=== PATIENT | male | born 1975 | race African-American/Black ===

== ENCOUNTER 2021-08-11 21:28 | Emergency (ER) | payer MEDICAID, SELFPAY ==
[2021-08-11 21:32] VITALS: BP 193/128; PULSE 101; RESP 16; TEMP 36.9; BMI 31.8
--- NOTE | 2021-08-11 21:38 | ECG_ITS ---
Test Reason : dizziness Blood Pressure : / mmHG Vent. Rate : 098 BPM Atrial Rate : 098 BPM P-R Int : 158 ms QRS Dur : 094 ms QT Int : 368 ms P-R-T Axes : 059 009 057 degrees QTc Int : 469 ms Normal sinus rhythm Possible Left atrial enlargement Left ventricular hypertrophy ( R in aVL , Sokolow-Yoon , Rudy product ) Cannot rule out Septal infarct , age undetermined Abnormal ECG When compared with ECG of 07-FEB-2017 14:33, No significant change was found Referred By: Generic ED Physician Electronically Signed By:KAYLYN WALKER MD
[2021-08-11 21:50] LABS: MANUAL DIFF FLAG NO
[2021-08-11 21:51] LABS: Basophils Percent Auto 0.3 % (0-2); Eosinophils Absolute Auto 0.1 X10*3/uL (0.0-0.4); Eosinophils Percent Auto 0.8 % (0-4); Hematocrit 39.5 % (42.0-52.0); Hemoglobin 12.6 g/dl (14.0-18.0); Imm Gran Abs Auto 0.02 X10*3/uL (0.00-0.03); Imm Gran Pct Auto 0.3 % (0.0-0.4); Lymphocytes Absolute Auto 1.9 X10*3/uL (1.2-4.9); Lymphocytes Percent Auto 30.3 % (20-40); Mean Corpuscular HGB Conc 31.9 g/dl (31.0-36.0); Mean Corpuscular Hemoglobin 27.3 pg (27.0-33.0); Mean Corpuscular Volume 85.5 fL (80.0-98.0); Monocytes Absolute Auto 0.5 X10*3/uL (0.1-1.2); Monocytes Percent Auto 7.5 % (2-11); Neutrophils Absolute Auto 3.9 x10*3/uL (2.0-8.3); Neutrophils Percent Auto 60.8 % (45-73); Platelet Count 317 X10*3/uL (160-400); Red Blood Count 4.62 X10*6/uL (4.60-5.80); Red Cell Distribution Width 14.1 % (11.0-16.0); White Blood Count 6.4 X10*3/uL (4.8-10.8)
--- NOTE | 2021-08-11 22:22 | ED_ITS ---
HPI - General Adult General Chief complaint: General Medical Stated complaint: Dizzy, fatigue, cant sleep Time Seen by Provider: 08/11/21 22:13 Source: patient Mode of arrival: ambulatory Limitations: no limitations History of Present Illness HPI narrative: 46-year-old male who presents emergency department for evaluation possible viral illness. The patient states he has been sick for approximately 3 days. He s tates he is feeling weak. He states that he has dizziness which she describes as a room spinning sensation that occurs when he moves his head. He complains muscle and joint pain. He states he has had subjective fevers with chills. States he has had difficulty sleeping at night. The patient is concerned that he may have COVID. The patient has not been vaccinated against COVID-19. The patient was noted to be hypertensive. He states that he does not have a history of hypertension a does not think that he has had his blood pressure checked in a very long time. He states he does have a PCP. Related Data Previous Rx's Medication Instructions Recorded lisinopril 10 mg tablet 10 mg PO DAILY #30 tab 08/11/21 Allergies Allergy/AdvReac Type Severity Reaction Status Date / Time No Known Allergies Allergy Unverified 02/24/20 15:43 Review of Systems Review of Systems: Yes all other systems are reviewed and are negative [facility] Past Medical History [facility] Narrative: Past medical history: None. Past surgical history: Hernia repair. Social history: The patient smokes 1 pack of cigarettes per day times 30 years. Patient denies alcohol use. He denies drug use. Social History Social History Advance Directives: No Advance Directives Information Provided: No Physical Exam ED Vital Signs: Vital Signs - 24 hr 08/11/21 21:32 Temperature 98.5 F Pulse Rate 101 H Respiratory Rate 16 Blood Pressure 193/128 H BMI result Body Mass Index 31.8 Const General: cooperative and no acute distress Orientation/consciousness: oriented to person and oriented to place Limitations: no limitations HENMT Head: Yes normal to inspection, Yes normocephalic and Yes atraumatic Ears: external ears normal General nose exam: Normal external nose present Face and sinus: Yes normal facial exam Mouth: Normal oral and palatal mucosa present Throat: Yes posterior oropharynx normal Eyes General: appearance normal, both eyes and all related structures Pupils: Equal, round and reactive pupils present Neck Neck: Yes normal visual inspection, Yes no lymphadenopathy, Yes trachea midline and Yes supple Chest Chest palpation & inspection: normal inspection of the chest and normal palpation of entire chest wall Resp Effort & Inspection: normal respiratory effort and able to speak in complete sentences Auscultation: clear to auscultation bilaterally Cardio Rate: regular rate Rhythm: regular rhythm Heart sounds: S1 normal heart sound present, S2 normal heart sound present and no murmurs GI Inspection: Yes normal to inspection Palpation (GI): Soft to palpation, nontender and no guarding Auscultation: normal bowel sounds General: Yes no CVA tenderness Back/Spine/Pelvis Back: no CVA tenderness Skin General skin exam: no rashes or lesions noted Neuro General: oriented to person and oriented to place Cranial nerves: Yes CN's II-XII intact bilaterally and Yes Equal, round and reactive pupils present Cognition (Neuro): normal cognition Motor exam (neuro): 5/5 motor strength present throughout Extrem General: Yes normal to inspection Psych Appearance: grossly normal Speech and movement: Normal speech and movement present Affect: normal affect Attitude: cooperative Thought process: Normal thought process present Thought content: Normal thought content present Course Course Course Narrative: 46-year-old male who presents emergency department for evaluation of viral-like illness x3 days. The patient is not vaccinated for COVID-19. Patient's vital signs reveal that he was hypertensive with a blood pressure 193/128. He does not have a history hypertension and does not take any medications. Patient's pulse was elevated 101. His exam was otherwise unremarkable. Laboratory evaluation revealed a normal CBC, BMP revealed an elevated CO2 of 30 otherwise was unremarkable. COVID-19 test was negative. Patient's presentation is consistent with a viral illness. Patient was advised to take Tylenol for his fever. I did tell him that sometimes a COVID-19 test can be falsely negative any continued symptoms especially symptoms of pneumonia you get a repeat COVID test . The patient is hypertensive. He most likely has essential hypertension. I do think he would benefit from being started on antihypertensive medications. The patient was started on lisinopril 10 mg once a day in use given his 1st do se here in the emergency department. He was given printed and verbal instructions and discharged home Medical Decision Making Lab Data Result diagrams: 08/11/21 21:44 08/11/21 21:44 Labs: Lab Results 08/11/21 08/11/21 08/11/21 Range/Units 21:44 21:44 21:44 WBC 6.4 (4.8-10.8) X10*3/uL RBC 4.62 (4.60-5.80) X10*6/uL Hgb 12.6 L (14.0-18.0) g/dl Hct 39.5 L (42.0-52.0) % MCV 85.5 (80.0-98.0) fL MCH 27.3 (27.0-33.0) pg MCHC 31.9 (31.0-36.0) g/dl RDW 14.1 (11.0-16.0) % Plt Count 317 (160-400) X10*3/uL MPV 10.0 (9.4-12.4) fL Immature Gran % (Auto) 0.3 (0.0-0.4) % Neut % (Auto) 60.8 (45-73) % Lymph % (Auto) 30.3 (20-40) % [place] % (Auto) 7.5 (2-11) % Eos % (Auto) 0.8 (0-4) % Baso % (Auto) 0.3 (0-2) % Lymph # (Auto) 1.9 (1.2-4.9) X10*3/uL [place] # (Auto) 0.5 (0.1-1.2) X10*3/uL Eos # (Auto) 0.1 (0.0-0.4) X10*3/uL Baso # (Auto) 0.0 (0.0-0.2) X10*3/uL Abs Immat Gran (auto) 0.02 (0.00-0.03) X10*3/uL Absolute Neuts (auto) 3.9 (2.0-8.3) x10*3/uL Absolute Nucleated RBC 0.000 (0.0-0.012) X10*3/uL Nucleated RBC % (auto) 0.0 (0.0-0.2) /100WBC Sodium 143 (135-145) mmol/L Potassium 4.1 (3.3-5.1) mmol/L Chloride 108 (96-108) mmol/L Carbon Dioxide 30 H (22-29) mmol/L Anion Gap 9 L (12-20) BUN 15 (9-16) mg/dL Creatinine 1.24 (0.5-1.4) mg/dL Estim Creat Clear Calc 69.5 Estimated GFR > 60 Random Glucose 102 (60-115) mg/dL Calcium 9.3 (8.4-10.2) mg/dL COVID-19 (LUC) Negative (Negative) COVID-19 Clin Com See Note Discharge Plan Discharge Clinical Impression: Viral syndrome Hypertension Qualifiers: Hypertension type: primary hypertension Qualified Code(s): I10 - Essential (sofia simpson) hypertension Patient Disposition: Home, Self-Care Instructions: Viral Syndrome (ED) Additional Instructions: Your blood work was normal. Your COVID-19 test was negative. Sometimes, in the beginning of a COVID infection the test can be negative that you actually have COVID. If you develops symptoms that are consistent with pneumonia such as fever, chills, chest pain, cough, shortness of breath then you should consider getting a repeat COVID test in 3 days. Take Tylenol (acetaminophen) 500 mg pills, 2 pills every 4 to 6 hours as needed for pain or fever Your blood pressure was high at 190 3/128 and 131/96. Normal blood pressure is 120 / 80. I am starting you on a blood pressure medication called lisinopril. Take lisinopril 10 mg once a day. You will need to follow-up with your doctor to get your blood pressure recheck and to get a refill of this medication. Buy a home blood pressure machine. Check your blood pressure on Mondays, Wednesdays and Friday mornings and write these blood pressure reading down over the next 2 weeks. You should follow-up with your doctor to discuss these blood pressure readings in to see if you need an adjustment to medications Follow-up with your doctor in 1-2 weeks. Please return to the emergency department if your symptoms get worse or if you develop any symptoms that are concerning to you. Please see work note Prescriptions: New lisinopril 10 mg tablet 10 mg PO DAILY Qty: 30 0RF Stand Alone Forms: Work/School Release
[2021-08-11 22:23] LABS: Anion Gap 9 (12-20); Blood Urea Nitrogen 15 mg/dL (9-16); Calcium 9.3 mg/dL (8.4-10.2); Carbon Dioxide 30 mmol/L (22-29); Chloride 108 mmol/L (96-108); Creatinine Clr Calc Pharmacy 69.5; Estimated Glomerular Filt Rate > 60; Glucose Random 102 mg/dL (60-115); Potassium 4.1 mmol/L (3.3-5.1); Sodium 143 mmol/L (135-145)
[2021-08-11 22:26] LABS: COVID-19 Test Negative (Negative)
[2021-08-11 22:57] VITALS: BP 144/104; PULSE 75; RESP 16; O2SAT 99
[2021-08-11] MEDS: lisinopriL 10 MG TABLET PO (22:57)
[2021-08-11 23:04] VITALS: BP 131/97; PULSE 80; RESP 14; O2SAT 98
== END 2021-08-11 23:25 | disposition home or self-care (01) ==
PROVIDERS: Emergency Provider Emergency Medicine Emergency Medical Services
DX: B34.9 Viral infection, unspecified (principal); Z20.822 Contact with and (suspected) exposure to COVID-19; I10 Essential (primary) hypertension; R42 Dizziness and giddiness
CPT/HCPCS: 80048; 85025; 87635; 93005; 99283; 99284

== ENCOUNTER 2021-10-10 18:53 | Emergency (ER) | payer MEDICAID, SELFPAY ==
--- NOTE | ~2021-10-10 | XR_ITS ---
EXAMINATION: XR CHEST CLINICAL INFORMATION: Cough. Covid positive. COMPARISON: Chest x-ray 02/07/2017 TECHNIQUE: Frontal portable view of the chest was obtained. 10:31 PM FINDINGS: No significant abnormality is noted involving the heart, lungs, mediastinum, bony thorax or soft tissues. XR/XR chest 1V IMPRESSION: Unremarkable examination.
[2021-10-10 20:22] VITALS: BP 142/88; PULSE 99; RESP 19; TEMP 36.9; O2SAT 98; BMI 38.5
[2021-10-10 20:42] LABS: COVID-19 Test Positive (Negative); IDNOW Serial# 55D5AD1C
[2021-10-10 20:43] LABS: Influenza A Negative (Negative); Influenza B2 Negative (Negative)
--- NOTE | 2021-10-10 22:27 | ED_ITS ---
HPI - General Adult General Chief complaint: General Medical Stated complaint: Covid? dizzy, cant hold anything down Time Seen by Provider: 10/10/21 22:16 Source: patient Mode of arrival: ambulatory Limitations: no limitations History of Present Illness HPI narrative: 46-year-old male healthy here with reports of 2 days of cough, feeling lightheaded and generally weak with poor appetite. No difficulty breathing, chest pain, palpitations, vomiting, diarrhea, abdominal pain. Patient has not received a COVID vaccine. Related Data Previous Rx's Medication Instructions Recorded lisinopril 10 mg tablet 10 mg PO DAILY #30 tab 08/11/21 benzonatate 200 mg capsule 200 mg PO TID PRN #14 cap 10/10/21 prednisone 20 mg tablet 40 mg PO DAILY #8 tab 10/10/21 Allergies Allergy/AdvReac Type Severity Reaction Status Date / Time No Known Allergies Allergy Unverified 02/24/20 15:43 Review of Systems Review of Systems: Yes all other systems are reviewed and are negative Constitutional: Constitutional: Reports no additional constitutional complaints, Denies body ache(s), Denies chills, Denies fever(s), Denies headache(s) and Reports weakness Eyes: Eyes: Reports no additional eye complaints and Denies change in vision ENT: Reports system reviewed and no additional complaints, except as documented, Reports dizziness (lightheaded), Denies headache(s), Denies nasal congestion, Denies nasal discharge and Denies neck pain Cardiovascular: Cardiovascular: Reports no additional cardiovascular complaints, Denies chest pain, Denies leg edema and Denies dyspnea Respiratory: Respiratory: Reports no additional respiratory complaints, Reports cough and Denies dyspnea Gastrointestinal: Gastrointestinal: Reports no additional gastrointestinal complaints, Denies abdominal pain, Denies diarrhea, Denies nausea and Denies vomiting Genitourinary: Genitourinary: Denies urinary incontinence Musculoskeletal: Musculoskeletal: Reports no additional musculoskeletal complaints, Denies back pain, Denies arthralgias, Denies joint swelling, Denies neck pain, Denies numbness and Denies tingling Integumentary/Breasts: Skin/Breast: Reports system reviewed and no additional complaints, except as docu and Denies rash Neurologic: Reports system reviewed and no additional complaints, except as documented, Reports dizziness (lightheaded), Denies headache(s), Denies numbness, Denies tingling and Reports weakness PMFSH Past Medical History Attestation statement: The following information was validated with the patient. Source: old records reviewed and nursing notes reviewed Social History Social History Advance Directives: No Advance Directives Information Provided: No Physical Exam ED Vital Signs: Vital Signs - 24 hr 10/10/21 20:22 Temperature 98.4 F Pulse Rate 99 Respiratory Rate 19 Blood Pressure 142/88 H Pulse Oximetry 98 BMI result Body Mass Index 38.5 Const General: cooperative, healthy appearing, comfortable and no acute distress Orientation/consciousness: patient oriented x3 Limitations: no limitations HENMT Head: Yes normal to inspection Ears: hearing grossly normal bilaterally General nose exam: Normal external nose present Face and sinus: Yes normal facial exam Mouth: Normal oral and palatal mucosa present Teeth and gingiva: dentition normal Throat: Yes posterior oropharynx normal, Yes tonsils normal and Yes uvula midline Eyes General: appearance normal, both eyes and all related structures Pupils: Equal, round and reactive pupils present Neck Neck: Yes normal visual inspection, Yes full ROM and Yes no lymphadenopathy Chest Chest palpation & inspection: normal inspection of the chest Resp Other: Mild expiratory wheezing throughout Effort & Inspection: normal respiratory effort Cardio Rate: regular rate Rhythm: regular rhythm Peripheral pulses: Peripheral pulses 2+ throughout GI Inspection: Yes normal to inspection Palpation (GI): Soft to palpation and nontender General: Yes no CVA tenderness Back/Spine/Pelvis Back: no CVA tenderness Skin General skin exam: no rashes or lesions noted Neuro General: patient oriented x3 and moves all extremities Cranial nerves: Yes Equal, round and reactive pupils present Course Course Course Narrative: 46-year-old here with reports of feeling lightheaded, weak, poor appetite and cough for the last 2 days. On exam patient has mild expiratory wheezing throughout. Vitals are stable. Will check COVID screen, chest x-ray. Will give albuterol 2 puffs and p.o. prednisone Reevaluation(s) Reevaluation #1: X-ray shows no acute finding. COVID screen is positive. The patient has no tachypnea, no hypoxia, no tachycardia. He is speaking full sentences. Plan for discharge home with albuterol MDI as needed and prednisone course. Reviewed worrisome signs and symptoms of when to return to the emergency department. Comfortable discharge home. Time: 23:00 Medical Decision Making Medical Records Medical records reviewed: Yes I reviewed the patient's medical records. Lab Data Lab results reviewed: Yes I reviewed the patient's lab results. Labs: Lab Results 10/10/21 10/10/21 Range/Units 20:20 20:20 COVID-19 (LUC) Positive A (Negative) COVID-19 Clin Com See Note Influenza Type A (ELÍAS) Negative (Negative) Influenza Type B (ELÍAS) Negative (Negative) Influenza A & B Note See Note Imaging Data Chest x-ray: Attestation: I personally reviewed and interpreted this imaging study as follows: Radiologist's impression: [address] [address] XRay Report Signed Patient: Sylvester Brand MR#: [id number] : 1975 Acct:[id number] Age/Sex: 46 / M ADM Date: 10/10/21 Loc: .ED Attending Dr: Ordering Physician: Chloe Avery NP Date of Service: 10/10/21 Procedure(s): XR chest 1V Accession Number(s): [id number] cc: Chloe Avery NP~ EXAMINATION: XR CHEST CLINICAL INFORMATION: Cough. Covid positive. COMPARISON: Chest x-ray 02/07/2017 TECHNIQUE: Frontal portable view of the chest was obtained. 10:31 PM FINDINGS: No significant abnormality is noted involving the heart, lungs, mediastinum, bony thorax or soft tissues. XR/XR chest 1V IMPRESSION: Unremarkable examination. ? Discharge Plan Discharge Clinical Impression: COVID-19 Patient Disposition: Home, Self-Care Instructions: COVID-19 (Coronavirus Disease 2019) (ED) Additional Instructions: Chest x-ray shows no acute finding Use the inhaler 2 puffs every 4 hours as needed Start prednisone tomorrow Return for difficulty breathing, chest pain Prescriptions: New prednisone 20 mg tablet 40 mg PO DAILY Qty: 8 0RF benzonatate 200 mg capsule 200 mg PO TID PRN (Reason: cough) Qty: 14 0RF No Action lisinopril 10 mg tablet 10 mg PO DAILY Qty: 30 0RF Referrals: [facility] [Primary Care Provider] - 5 days (as needed) Stand Alone Forms: Work/School Release
[2021-10-10] MEDS: predniSONE 20 MG TABLET 60 MG PO (22:31)
[2021-10-10] MEDS: Albuterol Sulfate 90 MCG 8 GM INHALER 2 PUFF INHALE (22:50)
== END 2021-10-11 00:10 | disposition home or self-care (01) ==
PROVIDERS: Emergency Provider Internal Medicine
DX: U07.1 COVID-19 (principal)
CPT/HCPCS: 71045; 87502; 87635; 99283; 99284

== ENCOUNTER 2022-08-07 11:54 | Emergency (ER) | payer MEDICAID, SELFPAY ==
--- NOTE | ~2022-08-07 | CT_ITS ---
EXAMINATION: CT ABDOMEN AND PELVIS WITH CONTRAST CLINICAL INFORMATION: Left lower quadrant pain COMPARISON: 02/07/2017 TECHNIQUE: Multidetector volumetric images were obtained from the superior aspect of the liver through the pubic symphysis following administration 85 mL of Omnipaque 350 intravenous contrast. Sagittal and coronal reformatted images were obtained on the technologist's workstation. Oral contrast: No This CT examination was performed using dose optimization techniques as appropriate, variously including the following: *Automated exposure control *Adjustment of mA and/or kV according to patient size (this includes techniques or standardized protocols for targeted exams where dose is matched to indication/reason for exam; i.e. extremities or head) *Use of iterative reconstruction technique DLP: 494 mGy-cm FINDINGS: LUNG BASES: The visualized lung bases are unremarkable. LIVER, GALLBLADDER, AND BILIARY TREE: The liver is normal in size, shape, and attenuation. Tiny right hepatic lobe hypodensity is too small to characterize. No biliary ductal dilatation is present. Gallbladder appears contracted. PANCREAS: Unremarkable. SPLEEN: Unremarkable. ADRENAL GLANDS: Unremarkable. KIDNEYS AND URETERS: No hydronephrosis or obstructing calculus bilaterally. Lobulated contour of the kidneys is noted. Bilateral nephrograms appear symmetric. BLADDER: Mildly distended and grossly unremarkable. GASTROINTESTINAL TRACT: No evidence of bowel obstruction or significant wall thickening. The appendix is unremarkable. No free fluid or free air is seen. ABDOMINAL WALL: No significant hernia is appreciated. LYMPH NODES: Normal. VASCULAR: Unremarkable. PELVIC VISCERA: Unremarkable. OSSEOUS STRUCTURES: Multilevel endplate osteophytes in the spine. CT/CT abdomen pelvis w IV con IMPRESSION: No acute findings identified in the abdomen/pelvis.
[2022-08-07 12:43] VITALS: BP 175/119; PULSE 96; RESP 20; TEMP 36.7; O2SAT 95; BMI 30.9
[2022-08-07 13:14] LABS: MANUAL DIFF FLAG NO
[2022-08-07 13:19] LABS: Basophils Percent Auto 0.5 % (0-2); Eosinophils Percent Auto 0.3 % (0-4); Hematocrit 35.5 % (42.0-52.0); Hemoglobin 11.5 g/dl (14.0-18.0); Imm Gran Abs Auto 0.03 X10*3/uL (0.00-0.03); Imm Gran Pct Auto 0.3 % (0.0-0.4); Lymphocytes Percent Auto 22.9 % (20-40); Mean Corpuscular HGB Conc 32.4 g/dl (31.0-36.0); Mean Corpuscular Volume 83.3 fL (80.0-98.0); Mean Platelet Volume 9.8 fL (9.4-12.4); Monocytes Absolute Auto 0.4 X10*3/uL (0.1-1.2); Monocytes Percent Auto 4.5 % (2-11); Neutrophils Absolute Auto 6.3 x10*3/uL (2.0-8.3); Neutrophils Percent Auto 71.5 % (45-73); Platelet Count 285 X10*3/uL (160-400); Red Blood Count 4.26 X10*6/uL (4.60-5.80); Red Cell Distribution Width 14.7 % (11.0-16.0); White Blood Count 8.8 X10*3/uL (4.8-10.8)
[2022-08-07 13:29] LABS: COVID-19 Test Negative (Negative); IDNOW Serial# 9DB6401D
[2022-08-07 13:30] LABS: Anion Gap 11 (12-20); Blood Urea Nitrogen 25 mg/dL (9-16); Calcium 8.7 mg/dL (8.4-10.2); Carbon Dioxide 25 mmol/L (22-29); Chloride 109 mmol/L (96-108); Creatinine Clr Calc Pharmacy 60.5; Estimated Glomerular Filt Rate 55; Glucose Fasting 121 mg/dL (60-99); Potassium 4.1 mmol/L (3.3-5.1); Sodium 141 mmol/L (135-145)
[2022-08-07 14:49] VITALS: BP 138/95; PULSE 78; RESP 18; TEMP 36.8; O2SAT 99
[2022-08-08 01:43] VITALS: BP 119/81; PULSE 77; RESP 17; TEMP 36.7; O2SAT 96
[2022-08-08 01:51] LABS: Appearance Urine Clear; Color Urine Yellow; Glucose Urine UA Negative (Negative); Leukocyte Esterase Urine Negative (Negative); Nitrite Urine Negative (Negative); PH 5.5 (5.0-9.0); Specific Gravity - Urine >= 1.030 (1.005-1.025); Urine Blood Negative (Negative); Urine Ketones Trace mg/dL (Negative); Urine Protein Trace mg/dL (Neg-Trace)
--- NOTE | 2022-08-08 02:07 | ED_ITS ---
HPI - Abdominal Pain General Chief Complaint: Abdominal Pain Stated Complaint: Abd pain Time Seen by Provider: 08/08/22 02:06 Source: patient Mode of arrival: ambulatory Limitations: no limitations History of Present Illness HPI narrative: Patient with no significant past abdominal complaints comes here for 2 days of left lower abdominal pain with nausea and vomiting started yesterday unable to eat or drink much vomited 3-4 times no diarrhea no fever no chills no blood in the stool last BM was 2 days ago Related Data Previous Rx's Medication Instructions Recorded lisinopril 10 mg tablet 10 mg PO DAILY #30 tabs 08/11/21 benzonatate 200 mg capsule 200 mg PO TID PRN cough #14 caps 10/10/21 prednisone 20 mg tablet 40 mg PO DAILY #8 tabs 10/10/21 dicyclomine 20 mg tablet 20 mg PO QID PRN abdominal pain 08/08/22 #20 tabs Allergies Allergy/AdvReac Type Severity Reaction Status Date / Time No Known Allergies Allergy Unverified 02/24/20 15:43 Review of Systems Review of Systems Yes all other systems are reviewed and are negative [facility] Social History Social History Advance Directives: No Advance Directives Information Provided: Yes Physical Exam ED Vital Signs: Vital Signs - 24 hr 08/07/22 12:43 08/07/22 14:49 08/08/22 01:43 Temperature 98.0 F 98.3 F 98.0 F Pulse Rate 96 78 77 Respiratory Rate 20 18 17 Blood Pressure 175/119 H 138/95 H 119/81 Pulse Oximetry 95 99 96 Oxygen Delivery Method Room Air 08/08/22 04:35 Temperature 98.0 F Pulse Rate 63 Respiratory Rate 18 Blood Pressure 131/70 Pulse Oximetry 96 Oxygen Delivery Method BMI result Body Mass Index 30.9 Appearance: Alert. Oriented X3. No acute distress. Eyes: PERRLA, No Nystagmus ENT: Pharynx normal. Oral Mucosa moist Neck: Normal inspection. Neck supple. CVS: Normal heart rate and rhythm. Pulses normal. Respiratory: No respiratory distress. Equal air entry bilateral, no wheezing/rales/rhonchi Abdomen: Soft tender with slight guarding left lower quadrant no rebound tenderness Bowel sounds are present, no mass palpable, no CVA tenderness Skin: Skin warm and dry. Normal skin color. Normal skin turgor. Extremities: No lower extremity edema. No calf tenderness Neuro: Oriented X 3. No motor deficit. Medical Decision Making Medical Decision Making [facility] Narrative: Patient lower abdominal pain normal so leukocyte count CT scan was done to rule out diverticulitis which is also normal which are patient home for nonspecific abdominal pain Differential Diagnosis Differential Diagnoses: The differential diagnosis associated with the presentation includes Diverticulitis/gastroenteritis/constipation/pancreatitis Lab Data [facility] Lab Attestation statement: I reviewed the patient's lab results. 08/07/22 13:09 08/07/22 13:09 Labs: Lab Results 08/07/22 08/07/22 08/07/22 Range/Units 13:09 13:09 13:09 WBC 8.8 (4.8-10.8) X10*3/uL RBC 4.26 L (4.60-5.80) X10*6/uL Hgb 11.5 L (14.0-18.0) g/dl Hct 35.5 L (42.0-52.0) % MCV 83.3 (80.0-98.0) fL MCH 27.0 (27.0-33.0) pg MCHC 32.4 (31.0-36.0) g/dl RDW 14.7 (11.0-16.0) % Plt Count 285 (160-400) X10*3/uL MPV 9.8 (9.4-12.4) fL Immature Gran % (Auto) 0.3 (0.0-0.4) % Neut % (Auto) 71.5 (45-73) % Lymph % (Auto) 22.9 (20-40) % [place] % (Auto) 4.5 (2-11) % Eos % (Auto) 0.3 (0-4) % Baso % (Auto) 0.5 (0-2) % Lymph # (Auto) 2.0 (1.2-4.9) X10*3/uL [place] # (Auto) 0.4 (0.1-1.2) X10*3/uL Eos # (Auto) 0.0 (0.0-0.4) X10*3/uL Baso # (Auto) 0.0 (0.0-0.2) X10*3/uL Abs Immat Gran (auto) 0.03 (0.00-0.03) X10*3/uL Absolute Neuts (auto) 6.3 (2.0-8.3) x10*3/uL Absolute Nucleated RBC 0.000 (0.0-0.012) X10*3/uL Nucleated RBC % (auto) 0.0 (0.0-0.2) /100WBC Sodium 141 (135-145) mmol/L Potassium 4.1 (3.3-5.1) mmol/L Chloride 109 H (96-108) mmol/L Carbon Dioxide 25 (22-29) mmol/L Anion Gap 11 L (12-20) BUN 25 H (9-16) mg/dL Creatinine 1.39 (0.5-1.4) mg/dL Estim Creat Clear Calc 60.5 Estimated GFR 55 Fasting Glucose 121 H (60-99) mg/dL Calcium 8.7 D (8.4-10.2) mg/dL Urine Color Urine Appearance Urine pH (5.0-9.0) Ur Specific [place] (1.005-1.025) Urine Protein (Neg-Trace) mg/dL Urine Glucose (UA) (Negative) mg/dL Urine Ketones (Negative) mg/dL Urine Blood (Negative) Urine Nitrite (Negative) Ur Leukocyte Esterase (Negative) COVID-19 (LUC) Negative (Negative) COVID-19 Clin Com See Note 08/08/22 Range/Units 01:45 WBC (4.8-10.8) X10*3/uL RBC (4.60-5.80) X10*6/uL Hgb (14.0-18.0) g/dl Hct (42.0-52.0) % MCV (80.0-98.0) fL MCH (27.0-33.0) pg MCHC (31.0-36.0) g/dl RDW (11.0-16.0) % Plt Count (160-400) X10*3/uL MPV (9.4-12.4) fL Immature Gran % (Auto) (0.0-0.4) % Neut % (Auto) (45-73) % Lymph % (Auto) (20-40) % [place] % (Auto) (2-11) % Eos % (Auto) (0-4) % Baso % (Auto) (0-2) % Lymph # (Auto) (1.2-4.9) X10*3/uL [place] # (Auto) (0.1-1.2) X10*3/uL Eos # (Auto) (0.0-0.4) X10*3/uL Baso # (Auto) (0.0-0.2) X10*3/uL Abs Immat Gran (auto) (0.00-0.03) X10*3/uL Absolute Neuts (auto) (2.0-8.3) x10*3/uL Absolute Nucleated RBC (0.0-0.012) X10*3/uL Nucleated RBC % (auto) (0.0-0.2) /100WBC Sodium (135-145) mmol/L Potassium (3.3-5.1) mmol/L Chloride (96-108) mmol/L Carbon Dioxide (22-29) mmol/L Anion Gap (12-20) BUN (9-16) mg/dL Creatinine (0.5-1.4) mg/dL Estim Creat Clear Calc Estimated GFR Fasting Glucose (60-99) mg/dL Calcium (8.4-10.2) mg/dL Urine Color Yellow Urine Appearance Clear Urine pH 5.5 (5.0-9.0) Ur Specific [place] >= 1.030 H (1.005-1.025) Urine Protein Trace (Neg-Trace) mg/dL Urine Glucose (UA) Negative (Negative) mg/dL Urine Ketones Trace (Negative) mg/dL Urine Blood Negative (Negative) Urine Nitrite Negative (Negative) Ur Leukocyte Esterase Negative (Negative) COVID-19 (LUC) (Negative) COVID-19 Clin Com Radiology Impression Discussion of test interpretation with radiology: I have reviewed the radiologist's reading. Radiologist Impression: CT/CT abdomen pelvis w IV con IMPRESSION: No acute findings identified in the abdomen/pelvis. ? Medications Administered Discontinued Medications Generic Name Dose Route Start Last Admin Trade Name Freq PRN Reason Stop Dose Admin Sodium Chloride 1,000 mls @ 999 mls/hr 08/08/22 02:11 08/08/22 04:16 Ns IV 08/08/22 03:11 Infused .Q1H1M ONE Infusion Iohexol 85 ml 08/08/22 03:18 08/08/22 03:18 Iohexol 350 Mg/Ml 100 Ml Infus..Btl IV 08/08/22 03:19 85 ml ONCE ONE Administration Morphine Sulfate 4 mg 08/08/22 02:11 08/08/22 03:01 Morphine Sulfate 4 Mg/Ml Cartridge IVPUSH 08/08/22 02:12 4 mg ONCE ONE Administration Protocol Ondansetron HCl 4 mg 08/08/22 02:11 08/08/22 03:01 Ondansetron Hcl 4 Mg/2 Ml Vial IVPUSH 08/08/22 02:12 4 mg ONCE ONE Administration Discharge Plan Discharge Clinical Impression: Abdominal pain Patient Disposition: Home, Self-Care Instructions: Acute Abdominal Pain (ED) Additional Instructions: Your CT scan of the abdomen is negative for acute pathology take pain medication as prescribed Prescriptions: New dicyclomine 20 mg tablet 20 mg PO QID PRN (Reason: abdominal pain) Qty: 20 0RF No Action lisinopril 10 mg tablet 10 mg PO DAILY Qty: 30 0RF prednisone 20 mg tablet 40 mg PO DAILY Qty: 8 0RF benzonatate 200 mg capsule 200 mg PO TID PRN (Reason: cough) Qty: 14 0RF
--- NOTE | 2022-08-08 02:36 | PC.NURSE ---
pt c/o L abd pain that worsens with movement, vs assessed
[2022-08-08] MEDS: ondansetron HCL 4 MG/2 ML VIAL IVPUSH (03:01)
[2022-08-08] MEDS: Morphine Sulfate 4 MG/ML CARTRIDGE IVPUSH (03:01)
[2022-08-08] MEDS: 0.9 % Sodium Chloride 1,000 ML 999 ML IV (03:10)
[2022-08-08] MEDS: iohexoL 350 MG/ML 100 ML INFUS..BTL 85 ML IV (03:18)
--- NOTE | 2022-08-08 04:02 | PC.NURSE ---
pt sleeping, no apparent distress
[2022-08-08 04:35] VITALS: BP 131/70; PULSE 63; RESP 18; TEMP 36.7; O2SAT 96
== END 2022-08-08 05:12 | disposition home or self-care (01) ==
PROVIDERS: Emergency Provider Internal Medicine
DX: R10.32 Left lower quadrant pain (principal); Z20.822 Contact with and (suspected) exposure to COVID-19
CPT/HCPCS: 74177; 80048; 81003; 85025; 87635; 96361; 96374; 96375; 99284; J2270; J2405; Q9967

== ENCOUNTER 2023-12-26 03:27 | Inpatient (IN) | payer SELFPAY ==
[2023-12-26] VITALS (35 sets, daily range): BP systolic 136–239; BP diastolic 78–159; PULSE 62–132; RESP 10–28; TEMP 36.3–37; O2SAT 90–99; BMI 33.0; BMI 32.9
--- NOTE | ~2023-12-26 | US_ITS ---
EXAMINATION: US RETROPERITONEAL LIMITED (RENAL ONLY) CLINICAL INFORMATION: Acute kidney injury (DEV). COMPARISON: CT abdomen and pelvis 08/08/2022. TECHNIQUE: Real-time imaging of the kidneys. Limited visualization due to bowel gas. FINDINGS: RIGHT KIDNEY: 10.2 x 4.7 x 6.0 cm (SAG x AP x TRV). Lobulated renal contour. There is possible thinning along the upper to mid renal cortex, although evaluation limited due to bowel gas. No hydronephrosis. No renal calculi. Limited visualization. LEFT KIDNEY: 10.2 x 5.1 x 4.5 cm (SAG x AP x TRV). Lobulated renal contour. No hydronephrosis. No renal calculi. Limited visualization. US/US renal BI IMPRESSION: Lobulation of the bilateral renal cortices as well as possible cortical thinning of the upper to mid right renal cortex difficult to evaluate completely due to bowel gas. No hydronephrosis. No renal calculi. This study was presented today, December 29, 2023, for interpretation. Stat results provided at this time as requested by referring provider.
--- NOTE | ~2023-12-26 | US_ITS ---
EXAMINATION: US VENOUS WITH DOPPLER UPPER EXTREMITY, RIGHT CLINICAL INFORMATION: Pain primarily in the axilla COMPARISON: None available. TECHNIQUE: Ultrasound of the upper extremity is performed using compression sonography and color and pulse Doppler flow with assessment of augmentation of flow. There is also imaging and Doppler assessment of the jugular and subclavian veins. Spectral analysis with color-flow imaging is performed. FINDINGS: Respiratory variation, normal compression, and augmented flow are noted throughout the upper extremity including the axillary, brachial, cubital, and radial and ulnar veins. There is normal flow in the internal jugular and subclavian veins. There is no visible deep or superficial thrombophlebitis. No enlarged lymph node is seen in region of patient's pain. US/US venous duplex UE RT IMPRESSION: No acute DVT demonstrated in the right upper extremity
--- NOTE | ~2023-12-26 | XR_ITS ---
EXAMINATION: XR CHEST CLINICAL INFORMATION: Right chest pain COMPARISON: October 10, 2021 TECHNIQUE: AP portable view of the chest was obtained. FINDINGS: No significant abnormality is noted involving the heart, lungs, mediastinum, bony thorax or soft tissues. XR/XR chest 1V IMPRESSION: No acute disease.
--- NOTE | ~2023-12-26 | CT_ITS ---
EXAMINATION: CT SHOULDER WITHOUT AND WITH CONTRAST, RIGHT CLINICAL INFORMATION: Right axillary mass. COMPARISON: Chest radiograph dated 12/26/2023. TECHNIQUE: Contiguous axial CT images of the right shoulder were obtained before and after the IV administration of 85 mL Omnipaque 350 contrast. The plantar reformats were provided and reviewed. This CT examination was performed using dose optimization techniques as appropriate, variously including the following: *Automated exposure control *Adjustment of mA and/or kV according to patient size (this includes techniques or standardized protocols for targeted exams where dose is matched to indication/reason for exam; i.e. extremities or head) *Use of iterative reconstruction technique DLP: 663 mGy-cm FINDINGS: No soft tissue mass, fluid collection, or abnormal enhancement. Benign-appearing right axillary lymph nodes. No significant lymphadenopathy. The visualized muscles and tendons are grossly intact. No asymmetric atrophy or hypertrophy. No significant rotator cuff tendon tear, however, evaluation limited on CT examination. No acute fracture or dislocation. Mild acromioclavicular marginal osteophytes. No glenohumeral joint space narrowing or marginal osteophytes. No concerning lytic or blastic osseous lesion. The visualized right lung is clear. Right thyroid hypoenhancing nodule measuring 0.9 x 0.7 cm. Findings are not clinically significant and no follow-up imaging is recommended. CT/CT shoulder RT wo/w IV con IMPRESSION: 1. No soft tissue mass, fluid collection, or abnormal enhancement. 2. Mild acromioclavicular osteoarthritis.
[2023-12-26 03:52] LABS: MANUAL DIFF FLAG NO
[2023-12-26 03:53] LABS: Basophils Absolute Auto 0.1 X10*3/uL (0.0-0.2); Basophils Percent Auto 0.5 % (0-2); Eosinophils Absolute Auto 0.1 X10*3/uL (0.0-0.4); Eosinophils Percent Auto 0.5 % (0-4); Hematocrit 42.2 % (42.0-52.0); Imm Gran Abs Auto 0.03 X10*3/uL (0.00-0.03); Imm Gran Pct Auto 0.3 % (0.0-0.4); Lymphocytes Absolute Auto 2.1 X10*3/uL (1.2-4.9); Mean Corpuscular HGB Conc 33.2 g/dl (31.0-36.0); Mean Corpuscular Hemoglobin 27.3 pg (27.0-33.0); Mean Corpuscular Volume 82.3 fL (80.0-98.0); Mean Platelet Volume 10.4 fL (9.4-12.4); Monocytes Absolute Auto 0.6 X10*3/uL (0.1-1.2); Monocytes Percent Auto 5.1 % (2-11); Neutrophils Absolute Auto 8.4 x10*3/uL (2.0-8.3); Neutrophils Percent Auto 74.6 % (45-73); Platelet Count 288 X10*3/uL (160-400); Red Blood Count 5.13 X10*6/uL (4.60-5.80); Red Cell Distribution Width 14.2 % (11.0-16.0); White Blood Count 11.3 X10*3/uL (4.8-10.8)
[2023-12-26 04:18] LABS: Creatinine Clr Calc Pharmacy 70.4; Estimated Glomerular Filt Rate > 60; Potassium 4.3 mmol/L (3.3-5.1)
[2023-12-26 04:19] LABS: Anion Gap 16 (12-20); Blood Urea Nitrogen 19 mg/dL (9-16); Calcium 9.5 mg/dL (8.4-10.2); Carbon Dioxide 23 mmol/L (22-29); Chloride 107 mmol/L (96-108); Glucose Random 119 mg/dL (60-115); Sodium 142 mmol/L (135-145)
--- NOTE | 2023-12-26 04:20 | PC.NURSE ---
Pt presents this am with R-armpit pain since Friday while at work. 03/18 pain. Pt reports hx of elevated BP not on medications. BP L-arm 212/154, R-arm 215/147, asymptomatic at this time. made aware.
--- NOTE | 2023-12-26 04:43 | ED.EXTPRO ---
HPI - Extremity Problem General Chief complaint: Extremity Problem Stated complaint: armpit pain? Time Seen by Provider: 12/26/23 04:42 Source: patient Mode of arrival: ambulatory Limitations: no limitations History of Present Illness ED Provider: fabio DANIELS Narrative: Patient with history of hypertension used to be on lisinopril stopped taking it for last few years complaints came here for pain in the right armpit for last 3 days no history of substance abuse no headache no shortness a breath no chest pain or palpitation blood pressure on arrival 213/159 with pulse rate of 92 Related Data Previous Rx's ?Medication ?Instructions ?Recorded lisinopril 10 mg tablet 10 mg PO DAILY #30 tabs 08/11/21 benzonatate 200 mg capsule 200 mg PO TID PRN cough #14 caps 10/10/21 prednisone 20 mg tablet 40 mg (2 x 20 mg) PO DAILY #8 tabs 10/10/21 dicyclomine 20 mg tablet 20 mg PO QID PRN abdominal pain 08/08/22 #20 tabs Allergies Allergy/AdvReac Type Severity Reaction Status Date / Time No Known Allergies Allergy Unverified 12/26/23 03:40 Review of Systems Review of Systems: Yes all other systems are reviewed and are negative PMF[facility] Social History Social History Alcohol intake: never Smoked in Last 30 Days: Yes Use of substances other than those prescribed or required for medical reasons: No Advance Directives: No Advance Directives Information Provided: Yes Do you have a plan to hurt others: No Plan Physical Exam Vital Signs: Vital Signs: Last Vital Signs Temp 98.6 F 12/26/23 06:00 Pulse 68 12/26/23 08:04 Resp 12 12/26/23 06:00 BP 217/152 H 12/26/23 08:04 Pulse Ox 98 12/26/23 06:00 O2 Del Method Room Air 12/26/23 06:00 BMI result Body Mass Index 33.0 Appearance: Alert. Oriented X3. No acute distress. Eyes: PERRLA, No Nystagmus ENT: Pharynx normal. Oral Mucosa moist Neck: Normal inspection. Neck supple. CVS: Normal heart rate and rhythm. Pulses normal. Respiratory: No respiratory distress. Equal air entry bilateral, no wheezing/rales/rhonchi slight tenderness right 4th 5th rib in anterior axillary area no mass palpable Abdomen: Soft and nontender. Bowel sounds are present, no mass palpable, no CVA tenderness Skin: Skin warm and dry. Normal skin color. Normal skin turgor. Extremities: No lower extremity edema. No calf tenderness Neuro: Oriented X 3. No motor deficit. No sensory deficit.No cerebellar signs , cranial nerves II-XII intact Medications Administered Discontinued Medications Generic Name Dose Route Start Last Admin Trade Name Freq PRN Reason Stop Dose Admin Hydralazine HCl 20 mg 12/26/23 06:37 12/26/23 07:14 Hydralazine Hcl 20 Mg/Ml Vial IVPUSH 12/26/23 06:38 20 mg ONCE ONE Administration Protocol Labetalol HCl 20 mg 12/26/23 04:56 12/26/23 05:27 Labetalol Hcl 100 Mg/20 Ml Vial IVPUSH 12/26/23 04:57 20 mg ONCE ONE Administration Labetalol HCl 20 mg 12/26/23 05:55 12/26/23 06:13 Labetalol Hcl 100 Mg/20 Ml Vial IVPUSH 12/26/23 05:56 20 mg ONCE ONE Administration Morphine Sulfate 15 mg 12/26/23 05:55 12/26/23 06:13 Morphine Sulfate Immed Release 15 Mg Tablet PO 12/26/23 05:56 15 mg ONCE ONE Administration Medical Decision Making Medical Decision Making [facility] Narrative: Patient with nonspecific musculoskeletal pain in right armpit chest x-ray negative noted to have accelerated hypertension 213/159 patient received 2 doses of labetalol 20 mg IV without much response also received hydralazine 20 mg still blood pressure elevated to 217/152 [place] 82 will start on nicardipine drip admit to ICU no end-organ damage case discussed with Dr. Salder supervisor [facility] department will accept the patient Differential Diagnosis Differential Diagnoses: The differential diagnosis associated with the presentation includes Hypertensive emergency/crisis Admission/Observation Consideration of admission/observation: Escalation of care including admission/observation considered Lab Data [facility] Lab Attestation statement: I reviewed the patient's lab results. 12/26/23 03:46 12/26/23 03:46 Labs: Lab Results 12/26/23 Range/Units 03:46 WBC 11.3 H (4.8-10.8) X10*3/uL RBC 5.13 D (4.60-5.80) X10*6/uL Hgb 14.0 D (14.0-18.0) g/dl Hct 42.2 (42.0-52.0) % MCV 82.3 (80.0-98.0) fL MCH 27.3 (27.0-33.0) pg MCHC 33.2 (31.0-36.0) g/dl RDW 14.2 (11.0-16.0) % Plt Count 288 (160-400) X10*3/uL MPV 10.4 (9.4-12.4) fL Immature Gran % (Auto) 0.3 (0.0-0.4) % Neut % (Auto) 74.6 H (45-73) % Lymph % (Auto) 19.0 L (20-40) % [place] % (Auto) 5.1 (2-11) % Eos % (Auto) 0.5 (0-4) % Baso % (Auto) 0.5 (0-2) % Lymph # (Auto) 2.1 (1.2-4.9) X10*3/uL [place] # (Auto) 0.6 (0.1-1.2) X10*3/uL Eos # (Auto) 0.1 (0.0-0.4) X10*3/uL Baso # (Auto) 0.1 (0.0-0.2) X10*3/uL Abs Immat Gran (auto) 0.03 (0.00-0.03) X10*3/uL Absolute Neuts (auto) 8.4 H (2.0-8.3) x10*3/uL Absolute Nucleated RBC 0.000 (0.0-0.012) X10*3/uL Nucleated RBC % (auto) 0.0 (0.0-0.2) /100WBC Sodium 142 (135-145) mmol/L Potassium 4.3 (3.3-5.1) mmol/L Chloride 107 (96-108) mmol/L Carbon Dioxide 23 (22-29) mmol/L Anion Gap 16 (12-20) BUN 19 H (9-16) mg/dL Creatinine 1.22 (0.5-1.4) mg/dL Estim Creat Clear Calc 70.4 Estimated GFR > 60 Random Glucose 119 H (60-115) mg/dL Calcium 9.5 D (8.4-10.2) mg/dL Critical Care Time Critical Care Time Critical Care Time: Yes Total Critical Care Time: 90 Attestation: The patient was critically ill with a high probability of imminent or life threatening deterioration. I spent greater than 100???minutes of discontinuous time evaluating the patient,delivering critical care at the bedside, discussing and evaluating pertinent data with consultants. Critical care time does not include time spent performing separately billable procedures or teaching. Total time spent performing critical care was 90???minutes. Discharge Plan Discharge Clinical Impression: Hypertensive crisis Patient Disposition: Admitted As Inpatient Print Language: Malay
[2023-12-26] MEDS: Labetalol HCL 100 MG/20 ML VIAL 20 MG IVPUSH ×2 (05:27→06:13)
[2023-12-26] MEDS: Morphine Sulfate Immed Release 15 MG TABLET PO (06:13)
--- NOTE | 2023-12-26 06:19 | PC.NURSE ---
Pt medicated with IV push labetolo per orders, no improvement in BP. Pt c/o 10/10 pain in R-armpit, tearful in bed. MD aware, Morphine and 2nd dose of labetolol administered as ordered.
[2023-12-26] MEDS: hydrALAZINE HCl 20 MG/ML VIAL IVPUSH ×2 (07:14→20:08)
--- NOTE | 2023-12-26 07:15 | PC.NURSE ---
Care of Pt assumed at change of shift. Pt is observed resting with his eye closed and without distress. Pt medicated for HTN per MAR. Will continue to monitor and re-assess BP for efficacy. Pt offers no complaints at this time.
--- NOTE | 2023-12-26 08:05 | ECG_ITS ---
Test Reason : HTN Blood Pressure : / mmHG Vent. Rate : 070 BPM Atrial Rate : 070 BPM P-R Int : 172 ms QRS Dur : 094 ms QT Int : 444 ms P-R-T Axes : 063 012 044 degrees QTc Int : 479 ms Normal sinus rhythm Minimal voltage criteria for LVH, may be normal variant ( Sokolow-Yoon ) Borderline ECG When compared with ECG of 11-AUG-2021 21:34, Nonspecific T wave abnormality, improved in Lateral leads Referred By: Carlyle Maldonado Electronically Signed By:KAYLYN WALKER MD
[2023-12-26] MEDS: HYDROmorphone HCl 0.5 MG/0.5 ML SYRINGE IVPUSH (09:02)
--- NOTE | 2023-12-26 09:14 | PC.NURSE ---
Pt reports pain is unchanged to right armpit s/p Dilaudid. HTN remains 192/129, Dr Blake aware, Nicardipine gtt to be started.
--- NOTE | 2023-12-26 09:21 | PHA.MEDREC ---
Addendum entered by Kira Price [facility] 12/26/23 09:23: REVIEWED Original Note: Pharmacy Consult ? Medication Reconciliation Pharmacy has completed the medication reconciliation. Patient stated he was not taking anything for medications. Called the pharmacy on file and they dont have him in their system.
[2023-12-26] MEDS: niCARdipine HCL 25 MG in 0.9 % Sodium Chloride 250 ML 52 MG IVCONT (09:42)
--- NOTE | 2023-12-26 09:44 | PC.NURSE ---
Ultrasound at bedside at this time. Pt reports unchanged pain level however eyes closed, no grimace noted. Nicardipine started at 5mg/hr for persistent HTN Pt continues to deny blurred vision or visual disturbance, dizziness or headache. NSR on tele.
--- NOTE | 2023-12-26 10:40 | PC.NURSE ---
RN to RN report given to Kody in ICU. Will transport Pt.
--- NOTE | 2023-12-26 11:11 | P.HPCC_ITS ---
History of Present Illness Date of Service: 12/26/23 Chief Complaint: pain in axilla 48-year-old gentleman with past medical history of hypertension, noncompliant to his medication, previously prescribed lisinopril but not taking for several years presented to the ED with right axillary pain. Pain is throbbing in nature, acute in onset progressive in nature started 3 days ago. Last night the pain disturbs him from sleep and could not fall asleep due to pain so he presented to the ED at 03:00 this morning. His blood pressure was noted to be 213/110 so MICU was consulted for the management of hypertensive urgency Review of Systems 2 Constitutional: Constitutional: Denies anorexia, Denies body ache(s) and Denies chills Eyes: Eyes: Denies blurry vision, Denies exophthalmos and Denies change in vision ENT: Reports Normal hearing present and Denies bleeding gums Cardiovascular: Cardiovascular: Denies Abdominal Cramping after Meds and Denies Abdominal Distension Respiratory: Respiratory: Denies chest congestion and Denies cough Gastrointestinal: Gastrointestinal: Denies abdominal pain and Denies melena Genitourinary: Genitourinary: Denies change in libido and Denies hematuria Neurologic: Reports Normal hearing present, Denies Neuro-related abnormal movements, Denies Abnormal speech present and Denies behavioral changes Psychiatric: Psychiatric: Denies behavioral changes, Denies change in appetite and Denies change in libido Endocrine: Endocrine: Denies change in libido [facility] Past Medical History Medical History (Updated 12/26/23 @ 12:06 by Kody Loera RN) HTN (hypertension) Surgical History Surgical History (Updated 12/26/23 @ 12:07 by Kody Loera RN) No pertinent past surgical history Social History Social History Alcohol intake: never Smoked in Last 30 Days: Yes Use of substances other than those prescribed or required for medical reasons: No Advance Directives: No Advance Directives Information Provided: Yes Do you have a plan to hurt others: No Plan Meds Allergies Allergy/AdvReac Type Severity Reaction Status Date / Time No Known Allergies Allergy Unverified 12/26/23 03:40 Active Medications: Current Medications Enoxaparin Sodium (Enoxaparin Sodium 40 Mg/0.4 Ml Syringe) 40 mg SUBCUT Q24H IDA Nicardipine HCl 25 mg/ Sodium (Chloride) 260 mls @ 0 mls/hr IVCONT .Q0M IDA; Protocol Last Titration: 12/26/23 11:01 Dose: 10 mg/hr, 104 mls/hr Ketorolac Tromethamine (Ketorolac Tromethamine 30 Mg/Ml Vial) 30 mg IM Q6H IDA Nifedipine (Nifedipine Er 30 Mg Tab.Er.24) 60 mg PO DAILY IDA; Protocol Home Medications ?Medication ?Instructions ?Recorded ?Confirmed ?Last Taken ?Type No Known Home Meds 12/26/23 12/26/23 Unknown History Physical Exam 2 Vital Signs: Vital Signs: Last Vital Signs Temp 98.4 F 12/26/23 08:31 Pulse 118 H 12/26/23 11:01 Resp 16 12/26/23 10:25 BP 176/110 H 12/26/23 11:01 Pulse Ox 98 12/26/23 06:00 O2 Del Method Room Air 12/26/23 06:00 BMI result Body Mass Index 33.0 General: Not acute distress, slightly ill appearing and slight tired appearing Nutritional Appearance: well nourished and overweight Eyes: Conjunctival congestion present Neck: No lymphadenopathy, no thyromegaly Resp: bilateral air entry equal, no added sounds present Cardio: Regular rate, regular rhythm; Heart sounds: S1 normal heart sound present and S2 normal heart sound present GI: soft, nontender, no guarding, no hepatosplenomegaly : bladder normal to inspection, bladder normal to palpation, no renal angle tenderness Skin: no rashes or lesions noted and elasticity normal Neuro: oriented to person, oriented to place, oriented to time and moves all extremities Neuro: Cranial nerves: Yes Normal hearing present Speech: No Abnormal speech present Results Labs 12/26/23 03:46 12/26/23 03:46 Labs: Laboratory Results - last 24 hr 12/26/23 03:46 MCV 82.3 MCH 27.3 MCHC 33.2 RDW 14.2 Plt Count 288 MPV 10.4 Immature Gran % (Auto) 0.3 Neut % (Auto) 74.6 H Lymph % (Auto) 19.0 L [place] % (Auto) 5.1 Eos % (Auto) 0.5 Baso % (Auto) 0.5 Lymph # (Auto) 2.1 [place] # (Auto) 0.6 Eos # (Auto) 0.1 Baso # (Auto) 0.1 Abs Immat Gran (auto) 0.03 Absolute Neuts (auto) 8.4 H Absolute Nucleated RBC 0.000 Nucleated RBC % (auto) 0.0 Anion Gap 16 Estim Creat Clear Calc 70.4 Estimated GFR > 60 Random Glucose 119 H Calcium 9.5 D Imaging Radiologist's Impressions: Impressions Chest X-Ray 12/26/23 05:35 IMPRESSION: No acute disease. Venous Duplex 12/26/23 09:54 IMPRESSION: No acute DVT demonstrated in the right upper extremity Assessment and Plan (1) Hypertensive crisis: Status: Acute (2) Lymph node enlargement: Status: Acute Plan Hypertensive urgency: Was diagnosed to have hypotension prescribed lisinopril few years ago but never took the pill Now hypertensive urgency has been also stimulated by pain in his axilla Started on nicardipine drip, we will titrate down as tolerated We will add oral nifedipine to assist with the drip titration Right axilla pain: Possible lymph node Ultrasound and Doppler of the axilla did not show any mass We will get a CT scan of the right shoulder to look for the mass We will get HIV, syphilis screening, blood cultures, MIN, CRP, ESR Prophylaxis: Lovenox Total time managing care of this patient today: 40 minutes.
[2023-12-26] MEDS: Enoxaparin Sodium 40 MG/0.4 ML SYRINGE SUBCUT (11:34)
[2023-12-26] MEDS: NIFEdipine ER 30 MG TAB.ER.24 60 MG PO (11:35)
[2023-12-26] MEDS: Ketorolac Tromethamine 30 MG/ML VIAL IM ×2 (11:36→20:08)
[2023-12-26 11:49] LABS: Amphetamine Screen Urine Not Detected (Not Detect); Barbiturates, Urine Not Detected (Not Detect); Benzodiazepines Screen Urine Not Detected (Not Detect); Cannabinoid Screen Urine Not Detected (Not Detect); Cocaine Screen Urine POSITIVE (Not Detect); Fentanyl, urine POSITIVE (Not Detect); Methadone Screen, Urine Not Detected (Not Detect); Opiate Screen Urine POSITIVE (Not Detect); Phencyclidine Screen Urine Not Detected (Not Detect)
[2023-12-26 11:50] LABS: Buprenorphine Scr Not Detected (Not Detect); Oxycodone Screen Urine Not Detected (Not Detect)
--- NOTE | 2023-12-26 12:42 | PC.NURSE ---
Addendum entered by Kody Loera RN 12/26/23 13:28: Has denied any chest pain. Voiding clear yellow in urinal. Reports able to sleep. Red eye / sclera noted. Reports didn't sleep well. Addendum entered by Kody Loera RN 12/26/23 13:17: Reported drug screen results to Dr Sadler (+ cocaine, fentanyl, and opiates). Question need for cardiac enzymes - no new orders at this time. Map goal of 120-[address] Sadler. Titrate per MAR. Original Note: Brought patient to ICU 261 from ED at 1053 - admission for high BP, nicardipine drip titrated per AUG. Initial complaint, right axilla pain - bump noted, no redness, not open. Received pain meds in ED, still very tender. Medicated with IM toradol (see MAR) with good effect, able to sleep at this time. Additional labs ordered by Dr Sadler. Drawn and pending. Confirmed giving PO BP meds with nicardipine drip with Dr Sadler. Girlfriend & parents at bedside to visit. CT with contrast done of axilla done - accompanied patient to test at approx 1215, back to room at 1250. Results pending. Patient educated about plan of care, including labs, tests, medications. Patient alert and oriented, cooperative with care. Patient resting at this time, call elam within reach.
[2023-12-26] MEDS: iohexoL 350 MG/ML 100 ML INFUS..BTL IV (12:44)
[2023-12-26] MEDS: niCARdipine HCL 25 MG in 0.9 % Sodium Chloride 250 ML 104 MG IVCONT (12:50)
[2023-12-26 12:53] LABS: C Reactive Protein 0.38 mg/dL (< or = 0.50)
[2023-12-26 12:55] LABS: Erythrocyte Sedimentation Rate 2 MM/HR (0-15)
[2023-12-27] VITALS: BP 135/63; PULSE 88; RESP 20; TEMP 36.5; O2SAT 98
[2023-12-27 03:15] VITALS: BP 117/76; PULSE 81; RESP 20; TEMP 36.3; O2SAT 99
[2023-12-27 03:33] LABS: Syphilis Screen Nonreactive (Nonreactive)
[2023-12-27 03:40] LABS: HIV AB/AG Nonreactive (Nonreactive); HIV Num 1 0.06 S/CO (0.00-0.99)
[2023-12-27 05:35] VITALS: BMI 33.2
[2023-12-27 06:41] LABS: MANUAL DIFF FLAG NO
[2023-12-27 06:48] LABS: Basophils Percent Auto 0.4 % (0-2); Eosinophils Absolute Auto 0.1 X10*3/uL (0.0-0.4); Eosinophils Percent Auto 1.1 % (0-4); Hematocrit 42.5 % (42.0-52.0); Imm Gran Abs Auto 0.03 X10*3/uL (0.00-0.03); Imm Gran Pct Auto 0.3 % (0.0-0.4); Lymphocytes Absolute Auto 2.6 X10*3/uL (1.2-4.9); Lymphocytes Percent Auto 27.8 % (20-40); Mean Corpuscular HGB Conc 32.9 g/dl (31.0-36.0); Mean Corpuscular Hemoglobin 27.3 pg (27.0-33.0); Mean Corpuscular Volume 82.8 fL (80.0-98.0); Mean Platelet Volume 10.4 fL (9.4-12.4); Monocytes Absolute Auto 0.6 X10*3/uL (0.1-1.2); Monocytes Percent Auto 6.4 % (2-11); Neutrophils Absolute Auto 6.1 x10*3/uL (2.0-8.3); Platelet Count 290 X10*3/uL (160-400); Red Blood Count 5.13 X10*6/uL (4.60-5.80); Red Cell Distribution Width 14.4 % (11.0-16.0); White Blood Count 9.5 X10*3/uL (4.8-10.8)
[2023-12-27 07:27] LABS: Alanine Aminotransferase 39 U/L (0-40); Alkaline Phosphatase 96 U/L (39-117); Anion Gap 17 (12-20); Aspartate Amino Transferase 21 U/L (5-37); Bilirubin Total 0.5 mg/dL (0.0-1.0); Blood Urea Nitrogen 28 mg/dL (9-16); Calcium 9.2 mg/dL (8.4-10.2); Carbon Dioxide 20 mmol/L (22-29); Chloride 105 mmol/L (96-108); Creatinine Clr Calc Pharmacy 35.1; Estimated Glomerular Filt Rate 28; Glucose Random 135 mg/dL (60-115); Magnesium 2.2 mg/dL (1.6-2.6); Potassium 4.1 mmol/L (3.3-5.1); Sodium 138 mmol/L (135-145)
[2023-12-27 08:00] VITALS: BP 100/70; PULSE 77; RESP 18; TEMP 36.3; O2SAT 98
--- NOTE | 2023-12-27 09:00 | MHC.CM.PN ---
CM met with Patient at bedside. Patient lives in a house with his Mother and he is functionally independent. Home/self care vs Recovery Team intervention r/t testing positive for Cocaine is the tentative plan and CM has initiated and will follow for dc planning. PCP is from [facility]
[2023-12-27] MEDS: 0.9 % Sodium Chloride 500 ML IV (09:40)
[2023-12-27] MEDS: Enoxaparin Sodium 40 MG/0.4 ML SYRINGE SUBCUT (09:40)
--- NOTE | 2023-12-27 10:11 | HO.PM.IMPN ---
Subjective Subjective Date of Service: 12/27/23 Interval History: feeling dizzy Physical Exam Vital Signs: Vital Signs: Last Vital Signs Temp 97.3 F 12/27/23 08:00 Pulse 77 12/27/23 08:00 Resp 18 12/27/23 08:00 BP 100/70 12/27/23 08:00 Pulse Ox 98 12/27/23 08:00 O2 Del Method Room Air 12/27/23 08:00 BMI result Body Mass Index 33.2 General: AO X 3, no acute distress Resp: CTA bilateral, no accessory muscles used CVS: S1,S2,RRR GI: soft, non tender, non distended Neuro: motor grossly intact, alert Psych: appropriate affect, appropriate insight no mass appreciated in right axilla Objective Data Active Medications Enoxaparin Sodium (Enoxaparin Sodium 40 Mg/0.4 Ml Syringe) 40 mg SUBCUT Q24H IDA Last Admin: 12/27/23 09:40 Dose: 40 mg Documented By: AUDREY Hydralazine HCl (Hydralazine Hcl 20 Mg/Ml Vial) 20 mg IVPUSH Q4H PRN; Protocol PRN Reason: SBP > 160 Last Admin: 12/26/23 20:08 Dose: 20 mg Documented By: MARIBEL Nicardipine HCl 25 mg/ Sodium (Chloride) 260 mls @ 0 mls/hr IVCONT .Q0M [facility]; Protocol Last Titration: 12/26/23 17:08 Dose: Infused Documented By: JEAN Ketorolac Tromethamine (Ketorolac Tromethamine 30 Mg/Ml Vial) 30 mg IVPUSH Q6H PRN PRN Reason: pain scale >4 Melatonin (Melatonin 3 Mg Tablet) 6 mg PO BEDTIME PRN PRN Reason: Insomnia Nifedipine (Nifedipine Er 30 Mg Tab.Er.24) 60 mg PO DAILY [facility]; Protocol Last Admin: 12/26/23 11:35 Dose: 60 mg Documented By: RAJIV Labs 12/27/23 05:52 12/27/23 05:48 Labs: Laboratory Results - last 24 hr 12/26/23 12/26/23 12/27/23 11:03 12:07 05:48 MCV MCH MCHC RDW Plt Count MPV Immature Gran % (Auto) Neut % (Auto) Lymph % (Auto) [place] % (Auto) Eos % (Auto) Baso % (Auto) Lymph # (Auto) [place] # (Auto) Eos # (Auto) Baso # (Auto) Abs Immat Gran (auto) Absolute Neuts (auto) Absolute Nucleated RBC Nucleated RBC % (auto) ESR 2 Anion Gap 17 Estim Creat Clear Calc 35.1 Estimated GFR 28 Random Glucose 135 H Calcium 9.2 Phosphorus 2.0 L Magnesium 2.2 Total Bilirubin 0.5 AST 21 ALT 39 Alkaline Phosphatase 96 C-Reactive Protein 0.38 Total Protein 7.0 Albumin 4.0 Urine Opiates Screen POSITIVE H Ur Buprenorphine Scrn Not Detected Ur Oxycodone Screen Not Detected Urine Methadone Screen Not Detected Urine Fentanyl Screen POSITIVE H Ur Barbiturates Screen Not Detected Ur Phencyclidine Scrn Not Detected Ur Amphetamines Screen Not Detected U Benzodiazepines Scrn Not Detected Urine Cocaine Screen POSITIVE H U Marijuana (THC) Screen Not Detected T.pallidum Ab (EIA) Nonreactive HIV 1&2 Ab/P24 Ag 4thGn Nonreactive 12/27/23 05:52 MCV 82.8 MCH 27.3 MCHC 32.9 RDW 14.4 Plt Count 290 MPV 10.4 Immature Gran % (Auto) 0.3 Neut % (Auto) 64.0 Lymph % (Auto) 27.8 [place] % (Auto) 6.4 Eos % (Auto) 1.1 Baso % (Auto) 0.4 Lymph # (Auto) 2.6 [place] # (Auto) 0.6 Eos # (Auto) 0.1 Baso # (Auto) 0.0 Abs Immat Gran (auto) 0.03 Absolute Neuts (auto) 6.1 Absolute Nucleated RBC 0.000 Nucleated RBC % (auto) 0.0 ESR Anion Gap Estim Creat Clear Calc Estimated GFR Random Glucose Calcium Phosphorus Magnesium Total Bilirubin AST ALT Alkaline Phosphatase C-Reactive Protein Total Protein Albumin Urine Opiates Screen Ur Buprenorphine Scrn Ur Oxycodone Screen Urine Methadone Screen Urine Fentanyl Screen Ur Barbiturates Screen Ur Phencyclidine Scrn Ur Amphetamines Screen U Benzodiazepines Scrn Urine Cocaine Screen U Marijuana (THC) Screen T.pallidum Ab (EIA) HIV 1&2 Ab/P24 Ag 4thGn Assessment and Plan (1) Hypertensive crisis: Status: Acute Plan 48M PMH htn, cocaine use presented with hyeprtensive emergency, admitted to icu for nicardapine drip, bp improved, now downgraded, also was complaining of right axillary painful mass. Hypertensive emergency Now complicated by relative hypotension, symptomatic with lightheadedness Holding antihypertensives, giving IV fluids, monitor Right axilla painful mass CT shoulder negative, nothing palpated on exam, symptoms resolved Cocaine use Abstinence recommended DVT prophylaxis with Lovenox Full code reason for continued hospitalization: Symptomatic hypotension Quality Stroke Does the patient have a stroke diagnosis?: No VTE Prior VTE?: No VTE Risk Level:: Medical - low VTE Device Contraindication: N/A - Device Ordered VTE Drug Contraindication: N/A - Med Ordered
[2023-12-27 12:00] VITALS: BP 100/60; PULSE 65; RESP 18; TEMP 36.3; O2SAT 96
[2023-12-27 16:00] VITALS: BP 100/60; PULSE 65; RESP 18; TEMP 36.3; O2SAT 96
[2023-12-27 20:00] VITALS: BP 95/55; PULSE 75; RESP 20; TEMP 36.9; O2SAT 98
[2023-12-28] VITALS: BP 96/68; PULSE 73; RESP 20; TEMP 36.1; O2SAT 100
[2023-12-28 03:38] VITALS: BP 110/66; PULSE 79; RESP 20; TEMP 36.1; O2SAT 99
[2023-12-28 05:43] VITALS: BMI 33.9
[2023-12-28 06:15] LABS: Anion Gap 16 (12-20); Blood Urea Nitrogen 50 mg/dL (9-16); Calcium 9.2 mg/dL (8.4-10.2); Carbon Dioxide 22 mmol/L (22-29); Chloride 102 mmol/L (96-108); Creatinine Clr Calc Pharmacy 26.8; Estimated Glomerular Filt Rate 20; Glucose Fasting 107 mg/dL (60-99); Potassium 3.9 mmol/L (3.3-5.1); Sodium 136 mmol/L (135-145)
[2023-12-28 06:27] LABS: Hematocrit 39.6 % (42.0-52.0); Hemoglobin 13.1 g/dl (14.0-18.0); Mean Corpuscular HGB Conc 33.1 g/dl (31.0-36.0); Mean Corpuscular Hemoglobin 27.1 pg (27.0-33.0); Mean Platelet Volume 10.8 fL (9.4-12.4); Platelet Count 259 X10*3/uL (160-400); Red Blood Count 4.83 X10*6/uL (4.60-5.80); Red Cell Distribution Width 14.4 % (11.0-16.0)
[2023-12-28 07:38] VITALS: BP 115/61; PULSE 69; RESP 18; TEMP 36.6; O2SAT 98
--- NOTE | 2023-12-28 10:00 | PC.NURSE ---
Addendum entered by Tiffani Littlejohn RN 12/28/23 16:04: at 1300 provider cancelled discharge order, patient will continue as inpatient pending Nephrology consult. Original Note: Orders to discharge received, patient was given discharge instructions, IVs and cell geneticist removed, patient waiting for family to take him home.
--- NOTE | 2023-12-28 10:15 | PM.DS ---
DS: Providers Provider Date of Service: 12/29/23 Date of admission: 12/26/23 10:16 Primary care physician: [facility] DS: Diagnosis Discharge Diagnosis (1) Hypertensive crisis: Status: Acute DS: Summary Hospital Course Hospital Course: from initial hpi: 48-year-old gentleman with past medical history of hypertension, noncompliant to his medication, previously prescribed lisinopril but not taking for several years presented to the ED with right axillary pain. Pain is throbbing in nature, acute in onset progressive in nature started 3 days ago. Last night the pain disturbs him from sleep and could not fall asleep due to pain so he presented to the ED at 03:00 this morning. His blood pressure was noted to be 213/110 so MICU was consulted for the management of hypertensive urgency hospital course: Was admitted for hypertensive emergency. He was admitted to the ICU and was on nicardipine drip and blood pressure became better controlled and was taken off. He then became relative hypotensive, and complicated by DEV. he was given IV fluids and symptoms resolved, creatinine improving from 3.24 to 1.73 at discharge. should get repeat labs in about 3 days. Will be discharged home without blood pressure medications and advised to avoid cocaine. He should continue monitor his blood pressure as outpatient. For right axillary painful mass CT shoulder was negative and nothing was palpated on exam. Appears to have been transient. Patient is feeling better will be discharged home. Time Attestation Discharge Coordination Time (in mins): 34 Quality: Safe Use of Opioids Does Pt have an Active Cancer Diagnosis on the Problem List?: No Quality: Stroke Does the patient have a stroke diagnosis?: No Physical Exam Vital Signs: Vital Signs: Last Vital Signs Temp 97.8 F 12/28/23 07:38 Pulse 69 12/28/23 07:38 Resp 18 12/28/23 07:38 BP 115/61 12/28/23 07:38 Pulse Ox 98 12/28/23 07:38 O2 Del Method Room Air 12/28/23 07:38 BMI result Body Mass Index 33.9 General: AO X 3, no acute distress Resp: CTA bilateral, no accessory muscles used CVS: S1,S2,RRR GI: soft, non tender, non distended Neuro: motor grossly intact, alert Psych: appropriate affect, appropriate insight no mass appreciated in right axilla DS: Data Data Completed and Pending Labs on day of discharge: Laboratory Results - last 24 hr 12/28/23 05:46 WBC 9.0 RBC 4.83 Hgb 13.1 L Hct 39.6 L MCV 82.0 MCH 27.1 MCHC 33.1 RDW 14.4 Plt Count 259 MPV 10.8 Absolute Nucleated RBC 0.000 Nucleated RBC % (auto) 0.0 Sodium 136 Potassium 3.9 Chloride 102 Carbon Dioxide 22 Anion Gap 16 BUN 50 H Creatinine 3.24 H Estim Creat Clear Calc 26.8 Estimated GFR 20 Fasting Glucose 107 H Calcium 9.2 Preliminary micro results at discharge 12/26/23 12:07 Blood Culture - Preliminary Blood - Venous No growth after 24 hours. 12/26/23 12:07 Blood Culture - Preliminary Blood - Venous No growth after 24 hours. Discharge Plan Discharge Anticipated Discharge Date/Time: 12/28/23 10:13 Patient Disposition: Home, Self-Care Discharge Diagnosis: hypertensive crisis, dev Referrals: Center[facility] [Primary Care Provider] - 1 Week Diet: Advance to usual diet Activity on Discharge: As tolerated Stand Alone Forms: Patient Portal Discharge page, Work/School Release Print Language: Slovenian Other Ambulatory Orders: Basic Metabolic Panel (Routine) Timeframe: 3 Days Facility: [facility] - Location: Laboratory Ordered By: Gary Vasques Care Plan Goals: recovery Health Concerns: hypertensive crisis, dev Plan of Treatment: monitor blood pressure, avoid cocaine, check labs in a few days Assessment: see above
--- NOTE | 2023-12-28 10:20 | MHC.CM.PN ---
Patient has been medically cleared for dc to home today, self care.
--- NOTE | 2023-12-28 13:21 | HO.PM.IMPN ---
Subjective Subjective Date of Service: 12/28/23 Interval History: feeling better Physical Exam Vital Signs: Vital Signs: Last Vital Signs Temp 97.8 F 12/28/23 07:38 Pulse 69 12/28/23 07:38 Resp 18 12/28/23 07:38 BP 115/61 12/28/23 07:38 Pulse Ox 98 12/28/23 07:38 O2 Del Method Room Air 12/28/23 07:38 BMI result Body Mass Index 33.9 General: AO X 3, no acute distress Resp: CTA bilateral, no accessory muscles used CVS: S1,S2,RRR GI: soft, non tender, non distended Neuro: motor grossly intact, alert Psych: appropriate affect, appropriate insight no mass appreciated in right axilla Objective Data Active Medications Enoxaparin Sodium (Enoxaparin Sodium 40 Mg/0.4 Ml Syringe) 40 mg SUBCUT Q24H IDA Last Admin: 12/28/23 10:47 Dose: Not Given Documented By: DOBROPaddy Non-Admin Reason: discharged Hydralazine HCl (Hydralazine Hcl 20 Mg/Ml Vial) 20 mg IVPUSH Q4H PRN; Protocol PRN Reason: SBP > 160 Last Admin: 12/26/23 20:08 Dose: 20 mg Documented By: KATHYLAMGiovanna Melatonin (Melatonin 3 Mg Tablet) 6 mg PO BEDTIME PRN PRN Reason: Insomnia Labs 12/28/23 05:46 12/28/23 05:46 Labs: Laboratory Results - last 24 hr 12/28/23 05:46 MCV 82.0 MCH 27.1 MCHC 33.1 RDW 14.4 Plt Count 259 MPV 10.8 Absolute Nucleated RBC 0.000 Nucleated RBC % (auto) 0.0 Anion Gap 16 Estim Creat Clear Calc 26.8 Estimated GFR 20 Fasting Glucose 107 H Calcium 9.2 Microbiology Microbiology Results: Microbiology 12/26/23 12:07 Blood Culture - Preliminary Blood - Venous No growth after 24 hours. 12/26/23 12:07 Blood Culture - Preliminary Blood - Venous No growth after 24 hours. Assessment and Plan (1) Hypertensive crisis: Status: Acute Plan 48M PMH htn, cocaine use presented with hyeprtensive emergency, admitted to icu for nicardapine drip, bp improved, now downgraded, also was complaining of right axillary painful mass. Hypertensive emergency Now complicated by relative hypotension, symptomatic with lightheadedness, acute kidney injury Holding antihypertensives, giving IV fluids, monitor, nephro eval, check renal us, ua Right axilla painful mass CT shoulder negative, nothing palpated on exam, symptoms resolved Cocaine use Abstinence recommended DVT prophylaxis with Lovenox Full code reason for continued hospitalization: Symptomatic hypotension, ver[place] Quality Stroke Does the patient have a stroke diagnosis?: No VTE Prior VTE?: No VTE Risk Level:: Medical - low VTE Device Contraindication: N/A - Device Ordered VTE Drug Contraindication: N/A - Med Ordered
[2023-12-28] MEDS: Lactated Ringers 1,000 ML 100 ML IVCONT (14:50)
[2023-12-28] MEDS: Enoxaparin Sodium 30 MG/0.3 ML SYRINGE SUBCUT (14:57)
[2023-12-28 16:00] VITALS: BP 127/74; PULSE 70; RESP 17; TEMP 36.3; O2SAT 99
[2023-12-28 20:00] VITALS: BP 143/85; PULSE 63; RESP 16; TEMP 36; O2SAT 100
[2023-12-29] VITALS: BP 140/75; PULSE 62; RESP 16; TEMP 37.1; O2SAT 99
[2023-12-29] MEDS: Lactated Ringers 1,000 ML 100 ML IVCONT ×2 (00:46→09:35)
[2023-12-29 04:00] VITALS: BP 132/75; PULSE 64; RESP 16; TEMP 36.6; O2SAT 99
[2023-12-29 06:00] VITALS: BMI 34.4
[2023-12-29 07:09] LABS: Anion Gap 12 (12-20); Blood Urea Nitrogen 44 mg/dL (9-16); Calcium 8.8 mg/dL (8.4-10.2); Carbon Dioxide 26 mmol/L (22-29); Chloride 105 mmol/L (96-108); Creatinine Clr Calc Pharmacy 50.6; Estimated Glomerular Filt Rate 42; Glucose Fasting 101 mg/dL (60-99); Potassium 4.5 mmol/L (3.3-5.1); Sodium 138 mmol/L (135-145)
[2023-12-29 07:32] LABS: Hematocrit 38.6 % (42.0-52.0); Hemoglobin 12.6 g/dl (14.0-18.0); Mean Corpuscular HGB Conc 32.6 g/dl (31.0-36.0); Mean Corpuscular Hemoglobin 27.5 pg (27.0-33.0); Mean Corpuscular Volume 84.3 fL (80.0-98.0); Mean Platelet Volume 10.8 fL (9.4-12.4); Platelet Count 257 X10*3/uL (160-400); Red Blood Count 4.58 X10*6/uL (4.60-5.80); Red Cell Distribution Width 14.4 % (11.0-16.0); White Blood Count 7.7 X10*3/uL (4.8-10.8)
[2023-12-29 08:00] VITALS: BP 137/95; PULSE 67; RESP 18; TEMP 36.4; O2SAT 100
--- NOTE | 2023-12-29 10:53 | MHC.CM.PN ---
Pt has been medically cleared for DC, he will arrange transport home, plan in self care.
[2024-01-02 09:28] LABS: Anti Nuclear Antibody Screen NEGATIVE (NEGATIVE)
== END 2023-12-29 11:47 | disposition home or self-care (01) | DRG 305 ==
LOC: HO.ED 08:10 → HO.EDOVER 10:22 → HO.ICU 10:26 → HO.IMC 18:00
PROVIDERS: Admitting Provider Internal Medicine Critical Care Medicine; Emergency Provider Internal Medicine; Visit Provider Internal Medicine
DX: I16.1 Hypertensive emergency (principal); N17.9 Acute kidney failure, unspecified; F17.210 Nicotine dependence, cigarettes, uncomplicated; Z71.6 Tobacco abuse counseling; M79.621 Pain in right upper arm; I95.9 Hypotension, unspecified; I10 Essential (primary) hypertension; F14.90 Cocaine use, unspecified, uncomplicated; Z91.148 Patient's other noncompliance with medication regimen for other reason
CPT/HCPCS: 36415; 71045; 73202; 76775; 80048; 80053; 80307; 83735; 84100; 85025; 85027; 85652; 86038; 86140; 86780; 87040; 87389; 93005; 93971; 99285; J0360; J1170; J1650; J1885; J1920; J2404; J7120; Q9967

== ENCOUNTER → 2023-12-26 08:05 | Outpatient (BNV) | payer SELFPAY | PROVIDERS: Admitting Provider Internal Medicine Critical Care Medicine; Emergency Provider Internal Medicine; Visit Provider Internal Medicine Cardiovascular Disease | DX: I10 Essential (primary) hypertension (principal) | CPT/HCPCS: 93010 ==

== ENCOUNTER → 2023-12-26 10:16 | Outpatient (BNV) | payer SELFPAY | PROVIDERS: Admitting Provider Internal Medicine Critical Care Medicine; Emergency Provider Internal Medicine; Visit Provider Internal Medicine | DX: I16.9 Hypertensive crisis, unspecified (principal) | CPT/HCPCS: 99232; 99239 ==

== ENCOUNTER → 2023-12-26 10:16 | Outpatient (BNV) | payer SELFPAY | PROVIDERS: Admitting Provider Internal Medicine Critical Care Medicine; Emergency Provider Internal Medicine; Visit Provider Internal Medicine Critical Care Medicine | DX: I16.9 Hypertensive crisis, unspecified (principal); R59.9 Enlarged lymph nodes, unspecified | CPT/HCPCS: 99222 ==

== ENCOUNTER 2024-01-04 02:36 | Emergency (ER) | payer SELFPAY ==
[2024-01-04 02:42] VITALS: BP 173/115; PULSE 70; RESP 20; TEMP 36.6; O2SAT 100; BMI 31.9
[2024-01-04 06:03] VITALS: BP 164/110; PULSE 58; RESP 18; TEMP 36.6; O2SAT 100
--- NOTE | 2024-01-04 06:03 | MHC.EDTECH ---
Hourly rounds and vitals completed,BP is elevated at 164/110,RN was made aware
--- NOTE | 2024-01-04 07:07 | ED.SKABFB ---
HPI - Skin/Abscess/Foreign Bdy General Chief complaint: Skin/Abscess/Foreign Body Stated complaint: gen med Time Seen by Provider: 01/04/24 07:01 Source: patient and old records reviewed Mode of arrival: ambulatory Limitations: no limitations History of Present Illness ED Provider: MILDRED HPI narrative: 48 yo male with PMH of HTN crisis just DC on 12/27 following DEV and nicardipine drip felt to be in setting of cocaine abuse DC with plan to repeat Cr and follow up with PCP he has not done that yet returns today with c/o Related Data Allergies Allergy/AdvReac Type Severity Reaction Status Date / Time No Known Allergies Allergy Verified 01/04/24 02:42 [facility] Past Medical History Attestation statement: The following information was validated with the patient. Source: old records reviewed Medical History HTN (hypertension) Surgical History No pertinent past surgical history Social History Social History Household Members: Family Housing: House Do you presently have visiting nurse or other home services: No Alcohol intake: never Patient Tobacco Use Status: Current everyday Tobacco user Tobacco use type: Cigarette Cigarette Packs Per Day: 1 Cigarettes Per Day: 20.0 Years Smoked: 5 Smoked in Last 30 Days: No Use of substances other than those prescribed or required for medical reasons: No Advance Directives: No Advance Directives Information Provided: No Do you have a plan to hurt others: No Plan service: No Physical Exam Vital Signs: Vital Signs: Last Vital Signs Temp 97.8 F 01/04/24 06:03 Pulse 58 01/04/24 06:03 Resp 18 01/04/24 06:03 BP 164/110 H 01/04/24 06:03 Pulse Ox 100 01/04/24 06:03 O2 Del Method Room Air 01/04/24 06:03 BMI result Body Mass Index 31.9 Medical Decision Making Medical Decision Making MDM Narrative: 48 yo male with PMH of HTN crisis just DC on 12/27 following DEV and nicardipine drip felt to be in setting of cocaine abuse DC with plan to repeat Cr and follow up with PCP he has not done that yet returns today with c/o Discharge Plan Discharge Print Language: Turkish
--- NOTE | 2024-01-04 07:16 | PC.NURSE ---
pt not in room when this RN updating boards.
--- NOTE | 2024-01-04 07:33 | PC.NURSE ---
bathrooms checked, mary al on chair, pt not in room.
== END 2024-01-04 07:36 | disposition left against medical advice (07) ==
PROVIDERS: Emergency Provider Emergency Medicine
DX: R21 Rash and other nonspecific skin eruption (principal)
CPT/HCPCS: 99281; 99284

== ENCOUNTER 2025-04-08 21:11 | Emergency (ER) | payer MEDICAID, SELFPAY ==
--- NOTE | 2025-04-08 | ECG_ITS ---
Test Reason : CHEST TIGHTNESS Blood Pressure : */* mmHG Vent. Rate : 79 BPM Atrial Rate : 79 BPM P-R Int : 160 ms QRS Dur : 100 ms QT Int : 390 ms P-R-T Axes : 23 6 20 degrees QTcB Int : 447 ms Normal sinus rhythm Voltage criteria for left ventricular hypertrophy ( R in aVL , Sokolow-Yoon , [place]field product ) Nonspecific T wave abnormality Abnormal ECG When compared with ECG of 26-Dec-2023 08:10, Nonspecific T wave abnormality, worse in Lateral leads Referred By: Generic ED Physician Electronically Signed By: ARNULFO BATISTA
--- NOTE | ~2025-04-08 | XR_ITS ---
CLINICAL HISTORY: cough x1 week 2 view chest x-ray Comparison: 12/26/2023 Findings: New right middle lobe consolidation. Question pneumonia, please correlate. Left lung clear without infiltrate. No pneumothorax. Heart size normal. No acute bony abnormalities. Impression: Right middle lobe consolidation, possibly pneumonia. This document has been electronically signed by: Cruzito Rice MD on 04/08/2025 22:16:49
[2025-04-08 21:13] VITALS: BP 174/91; PULSE 81; RESP 16; TEMP 37; O2SAT 97; BMI 26.3
[2025-04-08 21:32] LABS: MANUAL DIFF FLAG NO
[2025-04-08 21:33] LABS: Hematocrit 37.8 % (42.0-52.0); Hemoglobin 12.2 g/dl (14.0-18.0); Imm Gran Abs Auto 0.03 X10*3/uL (0.00-0.03); Imm Gran Pct Auto 0.3 % (0.0-0.4); Lymphocytes Absolute Auto 2.3 X10*3/uL (1.2-4.9); Mean Corpuscular HGB Conc 32.3 g/dl (31.0-36.0); Mean Corpuscular Hemoglobin 26.8 pg (27.0-33.0); Mean Corpuscular Volume 82.9 fL (80.0-98.0); NRBC Abs Auto 0.000 X10*3/uL (0.0-0.012); NRBC Pct Auto 0.0 /100WBC (0.0-0.2); Platelet Count 295 X10*3/uL (160-400); Red Blood Count 4.56 X10*6/uL (4.60-5.80); White Blood Count 11.2 X10*3/uL (4.8-10.8)
[2025-04-08 21:47] LABS: Alanine Aminotransferase 16 U/L (0-40); Albumin Level 4.3 g/dL (3.5-5.0); Alkaline Phosphatase 94 U/L (39-117); Anion Gap 11 (12-20); Aspartate Amino Transferase 21 U/L (5-37); Blood Urea Nitrogen 20 mg/dL (9-16); Calcium 8.8 mg/dL (8.4-10.2); Carbon Dioxide 24 mmol/L (22-29); Chloride 108 mmol/L (96-108); Creatinine Clr Calc Pharmacy 79.6; Estimated Glomerular Filt Rate > 60; Magnesium 2.1 mg/dL (1.6-2.6); Potassium 4.0 mmol/L (3.3-5.1); Sodium 139 mmol/L (135-145); Total Protein 7.3 g/dL (6.5-8.0)
[2025-04-08 21:55] LABS: Troponin-I High Sensitivity < 2.7 ng/L (<3.5-35.0)
--- OUTSIDE RECORDS SUMMARY | 2025-04-08 22:12 | XMS_ITS | Clinical Summary ---
Author Organization [employer] Address [address] [place] [address] [address] [place] [address] Care Team Providers Care Loan Documents Closer Name Role Phone Unavailable Primary Care Provider Unavailabl e Social History Tobacco Use Types Packs/Day Years Used Date Smoking Tobacco: Never Assessed Sex and Gender Information Value Date Recorded Sex Assigned at Male 04/08/2022 10:16 AM EDT Legal Sex Male 10:16 AM EDT Gender Identity Not on file Sexual Orientation Not on file Plan of Treatment Health Maintenance Due Date Last Done Comments CT Colonography 1974 Colonoscopy 1974 Colorectal Cancer Screening 1974 Depression Screening 1974 FIT DNA/Cologuard 1974 FIT 1974 FOBT 1974 HIV Screening 1974 Lipid Panel 1974 SDOH Screening 1974 Sigmoidoscopy 1974 Disability Screening 1974 Alcohol/Substance Use Screening 1986 Tobacco Screening 1986 Family Planning (PISQ) 1989 Hepatitis C Screening 1992 DTaP/Tdap/Td Vaccines (1 - Tdap) 1993 Hepatitis B Vaccines (1 of 3 - 19+ 3-dose series) 1993 Pneumococcal Vaccine: 50+ Ye ars (1 of 1 - PCV) 2024 Zoster Vaccines (1 of 2) 2024 COVID-19 Vaccine (1 - 2023-2 5 season) 2025 Influenza Vaccine (#1) 2025 RSV Patients and Pa tients Aged 60 years or older (1 - 1-dose 75+ series) 2049 HIB Vaccines Aged Out No longer eligi ble based on patient's age to complete this topic HPV Vaccines Aged Out No longer eligi ble based on patient's age to complete this topic Hepatitis A Vaccines Aged Out No long er eligible based on patient's age to complete this topic IPV Vaccines Aged Out No longer eligi ble based on patient's age to complete this topic Meningococcal B Vaccine Aged Out No l onger eligible based on patient's age to complete this topic Meningococcal Vaccine Aged Out No taylor melquiades eligible based on patient's age to complete this topic RSV under 20 months Aged Out No longe r eligible based on patient's age to complete this topic Rotavirus Vaccines Aged Out No longer eligible based on patient's age to complete this topic Insurance [facility] C[facility]
[2025-04-08 22:37] LABS: IDNOW Serial# 152EDE1D; Influenza B2 Negative (Negative)
[2025-04-08 22:38] LABS: COVID-19 Test Negative (Negative); IDNOW Serial# 16C4AD1C
[2025-04-08 23:50] VITALS: PULSE 69; RESP 16; O2SAT 96
[2025-04-08] MEDS: Albuterol/Iprat 2.5/0.5MG 3 ML AMPUL.NEB INHALE (23:54)
[2025-04-09] MEDS: Magnesium Sulfate/H2O 2 GM/50 ML PIGGYBACK IV (00:01)
--- NOTE | 2025-04-09 01:40 | ED_ITS ---
HPI - General Adult General Chief complaint: Upper Respiratory Symptoms Stated complaint: Chest pain/lot of mucus hurts to cough Time Seen by Provider: 04/08/25 22:16 Source: patient Limitations: language barrier History of Present Illness ED Provider: Yesika Peralta PA-C HPI narrative: 49-year-old male with a history of hypertension, asthma, tobacco abuse who presents with cough and cold symptoms x1 week. Cough is productive, with the associated nasal congestion, wheezing. No known sick contacts with similar symptoms. Associated chest wall pain when he coughs only. Patient admits to being nonadherent with the his blood pressure medication; in chart review it appears he takes lisinopril 10 mg daily. Related Data Previous Rx's ?Medication ?Instructions ?Recorded albuterol sulfate 90 mcg/actuation 2 puff inhalation Q 4-6H PRN 04/09/25 aerosol inhaler (Ventolin HFA) shortness of breath or wheezing #6.7 grams azithromycin 250 mg tablet 250 mg PO DAILY 4 days #4 t abs 04/09/25 doxycycline hyclate 100 mg capsule 100 mg PO BID #19 c aps 04/09/25 prednisone 20 mg tablet 40 mg (2 x 20 mg) PO DAILY # 8 tabs 04/09/25 Allergies Allergy/AdvReac Type Severity Reaction Status Date / Time No Known Allergies Allergy Verified 04/08/25 21:16 Review of Systems 2 Review of Systems: Yes all other systems are reviewed and are negative Constitutional: Constitutional: Denies fatigue and Denies fever(s) ENT: Reports nasal congestion Cardiovascular: Cardiovascular: Reports chest pain and Denies dyspnea Respiratory: Respiratory: Reports chest congestion, Reports cough, Denies dyspnea and Reports wheezing Gastrointestinal: Gastrointestinal: Denies abdominal pain, Denies nausea and Denies vomiting Endocrine: Endocrine: Denies fatigue Allergic/Immunologic: Allergic/Immunologic: Reports wheezing PMFSH Past Medical History Attestation statement: The following information was validated with the patient. Medical History HTN (hypertension) Surgical History No pertinent past surgical history Social History Social History Household Members: Family Housing: House Do you presently have visiting nurse or other home services: No Alcohol intake: never Patient Tobacco Use Status: Current everyday Tobacco user Tobacco use type: Cigarette Cigarette Packs Per Day: 1 Cigarettes Per Day: 20.0 Years Smoked: 5 Advance Directives: No Advance Directives Information Provided: No service: No Physical Exam ED Vital Signs: Vital Signs - 24 hr 04/08/25 21:13 04/08/25 23:50 Temperature 98.6 F Pulse Rate 81 69 Respiratory Rate 16 16 Blood Pressure 174/91 H Pulse Oximetry 97 Oxygen Delivery Method Room Air BMI result Body Mass Index 26.3 Const Other: Alert well-appearing Orientation/consciousness: patient oriented x3 Resp Other: Active bronchospasm cough, expiratory wheezes noted, rhonchorous posterior john Effort & Inspection: normal respiratory effort Cardio Other: Normal peripheral perfusion Skin Other: Warm dry no rash Neuro General: patient oriented x3, gait normal, no focal motor deficits and CN's II- XI intact bilaterally Psych Other: Cooperative Medications Administered Discontinued Medications Generic Name Dose Route Start Last Admin Trade Name Freq PRN Reason Stop Dose Admin Albuterol/Ipratropium 3 ml 04/08/25 23:45 04/08/25 23:54 Albuterol/Iprat 2.5/0.5mg 3 Ml Ampul.Neb INHALE 04/08/25 23:46 3 ml ONCE ONE Administration Magnesium Sulfate 2 gm in 50 mls @ 150 mls/hr 04/08/25 23:25 04/09/25 00:01 Magnesium Sulfate/H2o IV 04/08/25 23:44 150 mls/hr ONCE ONE Administration Azithromycin 500 mg/ Sodium 250 mls @ 125 mls/hr 04/08/25 23:25 04/09/25 00:07 Chloride IV 04/09/25 01:24 125 mls/hr ONCE ONE Administration Doxycycline Hyclate 100 mg/ 250 mls @ 166.67 mls/hr 04/08/25 23:25 04/09/25 00:07 Sodium Chloride IV 04/09/25 00:54 166.67 mls/hr ONCE ONE Administration Methylprednisolone Sodium Succinate 60 mg 04/08/25 23:25 04/09/25 00:07 Methylprednisolone Sod Succ 125 Mg/2 Ml Vial IVPUSH 04/08/25 23:26 60 mg ONCE ONE Administration Medical Decision Making Medical Decision Making MDM Narrative: 49-year-old male with a history of hypertension, asthma, tobacco abuse who presents with cough and cold symptoms x1 week. Cough is productive, with the associated nasal congestion, wheezing. No known sick contacts with similar symptoms. Associated fever and chest wall pain when he coughs only. Patient admits to being nonadherent with the his blood pressure medication; in chart review it appears he takes lisinopril 10 mg daily. Problem: Poorly controlled hypertension, asthma, ongoing tobacco abuse History: Per patient I have considered the following differential diagnoses: Asthma, bronchitis, viral syndrome, pneumonia , ACS, Plan: Screening labs including EKG and troponin were obtained, the patient was complaining of chest pain although it is chest wall pain with the coughing. This is not consistent with ACS. Patient found to have pneumonia on chest x- ray, viral panel negative, he does not require inpatient level of care, we will obtain blood cultures, lactic, giving a dose each of azithromycin and doxy, we will send with oral antibiotics. Treating him concurrently for his asthma with updraft, Mag, and steroid. We will give him a dose of his lisinopril, we will give him a month's worth, I will advise he needs to follow up with primary care to stay on his blood pressure medication. I have independently reviewed the following tests: Labs: Slight leukocytosis, not anemic, no electrolyte abnormality, lactic 1.1, troponin less than 2.7, viral panel negative EKG: Normal sinus rhythm, rate of 79, nonspecific T-wave abnormality noted primarily lateral leads, QTC 447 Chest x-ray:New right middle lobe consolidation. Question pneumonia, please correlate. Left lung clear without infiltrate. No pneumothorax. Heart size normal. No acute bony abnormalities. Impression: Right middle lobe consolidation, possibly pneumonia. Differential Diagnosis Differential Diagnoses: The differential diagnosis associated with the presentation includes See medical decision-making Admission/Observation Consideration of admission/observation: Escalation of care including admission/observation considered Not applicable Lab Data MDM Lab Attestation statement: I reviewed the patient's lab results. 04/08/25 21:27 04/08/25 21:27 Labs: Lab Results 04/08/25 04/08/25 Range/Units 21:27 23:58 WBC 11.2 H (4.8-10.8) X10*3/uL RBC 4.56 L (4.60-5.80) X10*6/uL Hgb 12.2 L (14.0-18.0) g/dl Hct 37.8 L (42.0-52.0) % MCV 82.9 (80.0-98.0) fL MCH 26.8 L (27.0-33.0) pg MCHC 32.3 (31.0-36.0) g/dl RDW 13.2 (11.0-16.0) % Plt Count 295 (160-400) X10*3/uL MPV 10.0 (9.4-12.4) fL Immature Gran % (Auto) 0.3 (0.0-0.4) % Neut % (Auto) 71.0 (45-73) % Lymph % (Auto) 20.8 (20-40) % [place] % (Auto) 7.1 (2-11) % Eos % (Auto) 0.4 (0-4) % Baso % (Auto) 0.4 (0-2) % Lymph # (Auto) 2.3 (1.2-4.9) X10*3/uL [place] # (Auto) 0.8 (0.1-1.2) X10*3/uL Eos # (Auto) 0.0 (0.0-0.4) X10*3/uL Baso # (Auto) 0.0 (0.0-0.2) X10*3/uL Abs Immat Gran (auto) 0.03 (0.00-0.03) X10*3/uL Absolute Neuts (auto) 8.0 (2.0-8.3) x10*3/uL Absolute Nucleated RBC 0.000 (0.0-0.012) X10*3/uL Nucleated RBC % (auto) 0.0 (0.0-0.2) /100WBC Sodium 139 (135-145) mmol/L Potassium 4.0 (3.3-5.1) mmol/L Chloride 108 (96-108) mmol/L Carbon Dioxide 24 (22-29) mmol/L Anion Gap 11 L (12-20) BUN 20 H (9-16) mg/dL Creatinine 1.11 (0.5-1.4) mg/dL Estim Creat Clear Calc 79.6 Estimated GFR > 60 Random Glucose 133 H (60-115) mg/dL Lactic Acid 1.1 (0.5-2.0) mmol/L Calcium 8.8 (8.4-10.2) mg/dL Magnesium 2.1 (1.6-2.6) mg/dL Total Bilirubin 0.4 (0.0-1.0) mg/dL AST 21 (5-37) U/L ALT 16 (0-40) U/L Alkaline Phosphatase 94 (39-117) U/L Troponin I High Sens < 2.7 (<3.5-35.0) ng/L Total Protein 7.3 (6.5-8.0) g/dL Albumin 4.3 (3.5-5.0) g/dL COVID-19 (LUC) Negative (Negative) COVID-19 Clin Com See Note Influenza Type A (ELÍAS) Negative (Negative) Influenza Type B (ELÍAS) Negative (Negative) Influenza A & B Note See Note Independent Interpretation I performed an independent interpretation of an: EKG Radiology Impression Discussion of test interpretation with radiology: I have reviewed the radiologist's reading. Discharge Plan Discharge Clinical Impression: Pneumonia, Asthma exacerbation, Hypertension Patient Disposition: Home, Self-Care Instructions: Asthma (ED), Chronic Hypertension (ED), Community Acquired Pneumonia (ED) Additional Instructions: You were found to have pneumonia on your chest x-ray, the remainder of your screening labs were normal including a cardiac enzyme. The viral panel was negative you were tested for COVID and influenza. Use your inhaler as directed, take the steroid as directed, take the azithromycin as directed take the doxycycline as directed. I am giving you a prescription for a month's worth of your blood pressure medication, take the lisinopril as directed. You need to follow up with primary care, you need to continue to manage your hypertension. Prescriptions: New albuterol sulfate [Ventolin HFA] 90 mcg/actuation HFA aerosol inhaler 2 puff inhalation Q4-6H PRN (Reason: shortness of breath or wheezing) Qty: 6.7 0RF prednisone 20 mg tablet 40 mg PO DAILY Qty: 8 0RF azithromycin 250 mg tablet 250 mg PO DAILY 4 Days Qty: 4 0RF Rx Instructions: start on day 2 of therapy doxycycline hyclate 100 mg capsule 100 mg PO BID Qty: 19 0RF Print Language: Swedish
[2025-04-09 01:49] VITALS: BP 109/90; PULSE 64; PULSE 66; RESP 12; TEMP 36.4; O2SAT 95
[2025-04-09 02:08] VITALS: BP 109/90
[2025-04-09 02:13] VITALS: BP 109/90; PULSE 66; RESP 12; TEMP 36.4; O2SAT 95
== END 2025-04-09 02:14 | disposition home or self-care (01) ==
PROVIDERS: Physician Assistant Medical; Emergency Provider Emergency Medicine
DX: J18.9 Pneumonia, unspecified organism (principal); J45.901 Unspecified asthma with (acute) exacerbation; I10 Essential (primary) hypertension; R07.89 Other chest pain; R05.9 Cough, unspecified; Z03.818 Encounter for observation for suspected exposure to other biological agents ruled out
CPT/HCPCS: 36415; 71045; 80053; 83605; 83735; 84484; 85025; 87040; 87502; 87635; 93005; 94640; 96365; 96366; 96368; 96375; 99284; 99285; J0456; J1271; J2919; J3475

== ENCOUNTER → 2025-04-08 21:19 | Outpatient (BNV) | payer MEDICAID, SELFPAY | PROVIDERS: Emergency Provider Emergency Medicine; Visit Provider Internal Medicine | DX: R94.31 Abnormal electrocardiogram [ECG] [EKG] (principal); R07.89 Other chest pain | CPT/HCPCS: 93010 ==

== ENCOUNTER → 2025-04-08 21:35 | Outpatient (BNV) | payer MEDICAID, SELFPAY | PROVIDERS: Visit Provider Radiology Diagnostic Radiology | DX: R91.8 Other nonspecific abnormal finding of lung field (principal) | CPT/HCPCS: 71045 ==